=== PATIENT | male | born 1945 | race Caucasian/White ===

== ENCOUNTER 2016-11-11 15:43 | Emergency (ER) | payer OTHER ==
[~2016-11-11] VITALS: Ht 182.9 cm; Wt 70.5 kg
[~2016-11-11 15:43] MED LIST: CITA10TA4 PO; CLON1 PO; MIRT1TAB PO
[2016-11-11 15:45] VITALS: BP 170/78; PULSE 98; RESP 22; TEMP 97.9; O2SAT 100
[2016-11-11] MEDS ORDERED: CITA20TA4 PO (15:48)
[2016-11-11] MEDS ORDERED: BUSP15TA PO (15:48)
[2016-11-11] MEDS ORDERED: CLON0.5T PO ×2 (15:48→17:17)
[2016-11-11] MEDS ORDERED: MIRT30TA PO (15:48)
[2016-11-11 15:55] VITALS: BP 170/78; PULSE 98; RESP 22; TEMP 97.9; O2SAT 100
[2016-11-11] MEDS ORDERED: SODIUM CHLOR 0.9% 1000 ML INJ 1,000 ML IV ONE (16:00)
[2016-11-11] MEDS ORDERED: LORazepam 2 MG/ML VIAL IV PUSH ONE (16:00)
[2016-11-11 16:15] LABS: AUTOMATED NEUTROPHIL # 4.3 TH/MM3 (1.8-7.7); BASOPHIL # 0.1 TH/MM3 (0-0.2); BASOPHIL % 1.4 % (0.0-2.0); EOSINOPHIL % 0.3 % (0.0-4.0); HEMATOCRIT 40.4 % (39.0-51.0); LYMPH % 16.5 % (9.0-44.0); LYMPHOCYTE # 0.9 TH/MM3 (1.0-4.8); MEAN CELL VOLUME 89.6 FL (80.0-100.0); MEAN CORPUSCULAR HEMOGLOBIN 31.1 PG (27.0-34.0); MEAN CORPUSCULAR HGB CONC 34.7 % (32.0-36.0); MONO % 5.8 % (0.0-8.0); PLATELET COUNT 196 TH/MM3 (150-450); RED BLOOD COUNT 4.51 MIL/MM3 (4.50-5.90); RED CELL DISTRIBUTION WIDTH 11.7 % (11.6-17.2); WHITE BLOOD COUNT 5.6 TH/MM3 (4.0-11.0)
[2016-11-11 16:20] LABS: HEMO FLAGS DIFF FINAL
[2016-11-11 16:22] LABS: CHLORIDE 103 MEQ/L (98-107); POTASSIUM 3.5 MEQ/L (3.5-5.1); SODIUM (NA) 138 MEQ/L (136-145)
[2016-11-11 16:26] LABS: ANION GAP 12 MEQ/L (5-15); BICARBONATE 23.1 MEQ/L (21.0-32.0); BLOOD UREA NITROGEN 7 MG/DL (7-18); MAGNESIUM 1.8 MG/DL (1.5-2.5)
[2016-11-11 16:29] LABS: ALT (GPT) 19 U/L (12-78); AST (GOT) 12 U/L (15-37); GLOMERULAR FILTRATION RATE 107 ML/MIN (>89)
[2016-11-11 16:31] LABS: TOTAL BILIRUBIN ADULT 0.5 MG/DL (0.2-1.0)
[2016-11-11 16:32] LABS: ALKALINE PHOSPHATASE 80 U/L (45-117)
--- NOTE | 2016-11-11 17:22 | PD ---
HPI Chief Complaint: Anxiety Time Seen by Provider: 15:50 Travel History International Travel<30 days: No Contact w/Intl Traveler<30days: No Traveled to known affect area: No History of Present Illness HPI This 71-year-old male says he is feeling tremulous. He's been having some nausea and anxiety. He has a history of anxiety and is on multiple medications. He has been on Klonopin until 2 days ago. He ran out of his medication and has not had any since. He stopped drinking about 5 months ago. He is not having any chest pain. PFSH Past Medical History Arthritis: Yes Anxiety: Yes Depression: Yes Cancer: No Cardiovascular Problems: No Chemotherapy: No Cerebrovascular Accident: No Diminished Hearing: No Endocrine: No Genitourinary: No Immune Disorder: No Musculoskeletal: Yes Neurologic: No Psychiatric: Yes (Panic attacks ) Reproductive: No Respiratory: No Immunizations Current: Yes (SHINGLES VACCINE 2014) Migraines: No Radiation Therapy: No Seizures: No Tetanus Vaccination: < 5 Years Influenza Vaccination: Yes Past Surgical History Abdominal Surgery: Yes (Hernia X's 3) Appendectomy: Yes Cardiac Surgery: No Ear Surgery: No Endocrine Surgery: No Eye Surgery: Yes (Cataract extraction) Genitourinary Surgery: No Gynecologic Surgery: No Oral Surgery: No Thoracic Surgery: No Other Surgery: Yes (Appendectomy 1980, Herni Repair 1981, Herni Repair 1983, Herni Repair 1990) Social History Alcohol Use: Yes (States sober 5 months) Tobacco Use: No Substance Use: No Allergies-Medications (Allergen,Severity, Reaction): Coded Allergies: No Known Allergies (Unverified , 11/11/16) Reported Meds & Prescriptions Reported Meds & Active Scripts Active Reported Buspirone (Buspirone HCl) 15 Mg Tab 15 Mg PO BID Citalopram (Citalopram Hydrobromide) 20 Mg Tab 20 Mg PO DAILY Mirtazapine 30 Mg Tab 30 Mg PO HS Clonazepam 0.5 Mg Tab 0.5 Mg PO BID PRN Review of Systems General / Constitutional: No: Fever, Chills Eyes: No: Diploplia HENT: Positive: Lightheadedness, No: Headaches Cardiovascular: Positive: Palpitations, No: Chest Pain or Discomfort Gastrointestinal: Positive: Nausea, No: Vomiting Genitourinary: No: Urgency, Frequency Musculoskeletal: Positive: Myalgias Skin: No Rash Neurologic: Positive: Weakness Physical Exam Narrative GENERAL: Thin male. He is somewhat tremulous SKIN: Focused skin assessment warm/dry. HEAD: Atraumatic. Normocephalic. EYES: Pupils equal and round. No scleral icterus. No injection or drainage. ENT: No nasal bleeding or discharge. Mucous membranes pink and moist. NECK: Trachea midline. No JVD. CARDIOVASCULAR: Regular rate and rhythm. No murmur appreciated. RESPIRATORY: No accessory muscle use. Clear to auscultation. Breath sounds equal bilaterally. GASTROINTESTINAL: Abdomen soft, non-tender, nondistended. Hepatic and splenic margins not palpable. MUSCULOSKELETAL: No obvious deformities. No clubbing. No cyanosis. No edema. NEUROLOGICAL: Awake and alert. No obvious cranial nerve deficits. Motor grossly within normal limits. Normal speech. PSYCHIATRIC: Appropriate mood and affect; insight and judgment normal. Data Data Last Documented VS Vital Signs Date Time Temp Pulse Resp B/P Pulse Ox O2 Delivery O2 Flow Rate FiO2 11/11/16 15:55 97.9 98 22 170/78 100 Room Air Orders Electrocardiogram (11/11/16 15:56) Complete Blood Count With Diff (11/11/16 15:56) Comprehensive Metabolic Panel (11/11/16 15:56) Magnesium (Mg) (11/11/16 15:56) Thyroid Stimulating Hormone (11/11/16 15:56) Sodium Chlor 0.9% 1000 Ml Inj (Ns 1000 M (11/11/16 16:00) Lorazepam Inj (Ativan Inj) (11/11/16 16:00) Labs Laboratory Tests Test 11/11/16 16:05 White Blood Count 5.6 TH/MM3 Red Blood Count 4.51 MIL/MM3 Hemoglobin 14.0 GM/DL Hematocrit 40.4 % Mean Corpuscular Volume 89.6 FL Mean Corpuscular Hemoglobin 31.1 PG Mean Corpuscular Hemoglobin 34.7 % Concent Red Cell Distribution Width 11.7 % Platelet Count 196 TH/MM3 Mean Platelet Volume 7.5 FL Neutrophils (%) (Auto) 76.0 % Lymphocytes (%) (Auto) 16.5 % Monocytes (%) (Auto) 5.8 % Eosinophils (%) (Auto) 0.3 % Basophils (%) (Auto) 1.4 % Neutrophils # (Auto) 4.3 TH/MM3 Lymphocytes # (Auto) 0.9 TH/MM3 Monocytes # (Auto) 0.3 TH/MM3 Eosinophils # (Auto) 0.0 TH/MM3 Basophils # (Auto) 0.1 TH/MM3 CBC Comment DIFF FINAL Differential Comment Sodium Level 138 MEQ/L Potassium Level 3.5 MEQ/L Chloride Level 103 MEQ/L Carbon Dioxide Level 23.1 MEQ/L Anion Gap 12 MEQ/L Blood Urea Nitrogen 7 MG/DL Creatinine 0.73 MG/DL Estimat Glomerular Filtration 107 ML/MIN Rate Random Glucose 103 MG/DL Calcium Level 8.5 MG/DL Magnesium Level 1.8 MG/DL Total Bilirubin 0.5 MG/DL Aspartate Amino Transf 12 U/L (AST/SGOT) Alanine Aminotransferase 19 U/L (ALT/SGPT) Alkaline Phosphatase 80 U/L Total Protein 6.8 GM/DL Albumin 3.7 GM/DL Thyroid Stimulating Hormone 2.020 uIU/ML 3rd Gen [facility] Medical Decision Making Medical Screen Exam Complete: Yes Emergency Medical Condition: Yes Medical Record Reviewed: Yes Differential Diagnosis Differential includes anxiety, adverse medication reaction, benzodiazepine withdrawal Narrative Course I think a lot of his symptoms are secondary to withdrawal from Klonopin. I will prescribe Klonopin to use for the next 2 weeks; follow-up with his own medical doctor Diagnosis Primary Impression: Benzodiazepine withdrawal Qualified Code: F13.230 - Benzodiazepine withdrawal, uncomplicated Scripts Clonazepam 0.5 Mg Tab0.5 Mg PO BID PRN (ANXIETY) #60 TAB Ref 0 Prov:Stu Vazquez MD 11/11/16 Disposition: DISCHARGE HOME Condition: Stable Stu Vazquez MD Nov 11, 2016 17:22
[2016-11-11 17:25] VITALS: BP 111/63; PULSE 78; RESP 16; O2SAT 100
[2016-11-11 17:32] LABS: BLOOD, URINE NEG (NEG); GLUCOSE,URINE NEG (NEG); KETONE, URINE NEG (NEG); NITRITE,URINE NEG (NEG)
[2016-11-11 17:35] LABS: URINE COLOR STRAW (YELLW/STRAW)
[2016-11-11 17:36] LABS: COMMENT (UR) CULT NOT INDICATED; CULTURE IF INDICATED CULT NOT INDICATED; SQUAMOUS EPITHELIAL CELL URINE 0-5 /hpf (0-5)
--- NOTE | 2016-11-12 11:48 | EKG ---
Date Performed: 11/11/2016 Time Performed: 16:15:14 PTAGE: 71 years EKG: Sinus rhythm BORDERLINE LEFT AXIS DEVIATION Since previous tracing, no significant change noted BORDERLINE ECG PREVIOUS TRACING : 04/25/2016 10.34 DOCTOR: Mark Conner Interpretating Date/Time 11/12/2016 11:45:30
== END 2016-11-11 17:55 | disposition home or self-care (01) ==
LOC: PHED 15:43
DX: F13.230 Sedative, hypnotic or anxiolytic dependence with withdrawal, uncomplicated (principal); R25.1 Tremor, unspecified; F41.9 Anxiety disorder, unspecified; R11.0 Nausea; R94.31 Abnormal electrocardiogram [ECG] [EKG]; Z87.39 Personal history of other diseases of the musculoskeletal system and connective tissue; Z86.59 Personal history of other mental and behavioral disorders
CPT/HCPCS: 80053; 81001; 83735; 84443; 85025; 93005; 96374; 99284; J2060; J7030

== ENCOUNTER 2016-12-03 13:59 | Inpatient (IN) | payer OTHER ==
[~2016-12-03] VITALS: Ht 182.9 cm; Wt 69.7 kg
[~2016-12-03 13:59] MED LIST changes: +BUSP15TA PO; -CITA10TA4 PO; +CITA20TA4 PO; +CLON0.5T PO; -CLON1 PO; -MIRT1TAB PO; +MIRT30TA PO
[2016-12-03 15:05] VITALS: BP 130/69; PULSE 72; RESP 18; TEMP 96.4; O2SAT 98
[2016-12-03 16:05] LABS: AUTOMATED NEUTROPHIL # 5.7 TH/MM3 (1.8-7.7); BASOPHIL % 0.6 % (0.0-2.0); EOSINOPHIL # 0.1 TH/MM3 (0-0.4); EOSINOPHIL % 0.9 % (0.0-4.0); HEMATOCRIT 40.5 % (39.0-51.0); HEMO FLAGS DIFF FINAL; LYMPH % 15.9 % (9.0-44.0); LYMPHOCYTE # 1.2 TH/MM3 (1.0-4.8); MEAN CELL VOLUME 89.9 FL (80.0-100.0); MEAN CORPUSCULAR HEMOGLOBIN 32.1 PG (27.0-34.0); MEAN CORPUSCULAR HGB CONC 35.7 % (32.0-36.0); MONO % 6.9 % (0.0-8.0); NEUT % 75.7 % (16.0-70.0); PLATELET COUNT 190 TH/MM3 (150-450); RED CELL DISTRIBUTION WIDTH 12.7 % (11.6-17.2); WHITE BLOOD COUNT 7.5 TH/MM3 (4.0-11.0)
[2016-12-03 16:12] LABS: AMPHETAMINE, URINE NEG (NEG); BARBITURATES, URINE NEG (NEG); COCAINE, URINE NEG (NEG)
[2016-12-03 16:22] LABS: ANION GAP 6 MEQ/L (5-15); AST (GOT) 17 U/L (15-37); BICARBONATE 29.2 MEQ/L (21.0-32.0); BLOOD UREA NITROGEN 9 MG/DL (7-18); CHLORIDE 99 MEQ/L (98-107); GLOMERULAR FILTRATION RATE 112 ML/MIN (>89); POTASSIUM 3.6 MEQ/L (3.5-5.1); SODIUM (NA) 134 MEQ/L (136-145)
[2016-12-03 16:26] LABS: ALKALINE PHOSPHATASE 85 U/L (45-117); ALT (GPT) 18 U/L (12-78); TOTAL BILIRUBIN ADULT 0.6 MG/DL (0.2-1.0)
--- NOTE | 2016-12-03 16:33 | PD ---
HPI Chief Complaint: Suicide Ideation/Attempt Time Seen by Provider: 16:30 Travel History International Travel<30 days: No Contact w/Intl Traveler<30days: No Traveled to known affect area: No History of Present Illness HPI 71-year-old male that presents to the ED for evaluation of Ortega act. Patient was Ortega acted by police after apparently he made suicidal statements via phone to a friend. Friend contacted the police. Patient states that he bowels with depression and anxiety for some time. Per patient last Monday he is Klonopin was chained to clonazepam and ever since he's been having more symptoms. Per patient he doesn't have any actual plan but he does feel like he does not want to live like this anymore. He denies any substance abuse. No drugs. No allergies to medication. Denies any homicidal ideation. Patient was brought here under a Ortega act. He denies any medical issues today. PFSH Past Medical History Arthritis: Yes Anxiety: Yes Depression: Yes Cancer: No Cardiovascular Problems: No Chemotherapy: No Cerebrovascular Accident: No Diminished Hearing: No Endocrine: No Gastrointestinal Disorders: No Genitourinary: No Headaches: No Immune Disorder: No Implanted Vascular Access Dvce: No Musculoskeletal: Yes Neurologic: No Psychiatric: Yes (Panic attacks ) Reproductive: No Respiratory: No Immunizations Current: Yes (SHINGLES VACCINE 2014) Migraines: No Radiation Therapy: No Seizures: No Past Surgical History Abdominal Surgery: Yes (Hernia X's 3) Appendectomy: Yes Cardiac Surgery: No Ear Surgery: No Endocrine Surgery: No Eye Surgery: Yes (Cataract extraction) Genitourinary Surgery: No Gynecologic Surgery: No Neurologic Surgery: No Oral Surgery: No Thoracic Surgery: No Other Surgery: Yes (Appendectomy 1980, Herni Repair 1981, Herni Repair 1983, Herni Repair 1990) Social History Alcohol Use: Yes (States sober 5 months) Tobacco Use: No Substance Use: No Allergies-Medications (Allergen,Severity, Reaction): Coded Allergies: No Known Allergies (Unverified , 11/11/16) Reported Meds & Prescriptions Reported Meds & Active Scripts Active Clonazepam 0.5 Mg Tab 0.5 Mg PO BID PRN Reported Buspirone (Buspirone HCl) 15 Mg Tab 15 Mg PO BID Citalopram (Citalopram Hydrobromide) 20 Mg Tab 20 Mg PO DAILY Mirtazapine 30 Mg Tab 30 Mg PO HS Review of Systems Except as stated in HPI: all other systems reviewed are Neg Physical Exam Narrative GENERAL: SKIN: Warm and dry. HEAD: Atraumatic. Normocephalic. EYES: Pupils equal and round. No scleral icterus. No injection or drainage. ENT: No nasal bleeding or discharge. Mucous membranes pink and moist. Tongue is midline. No uvula deviation. NECK: Trachea midline. No JVD. CARDIOVASCULAR: Regular rate and rhythm. RESPIRATORY: No accessory muscle use. Clear to auscultation. Breath sounds equal bilaterally. GASTROINTESTINAL: Abdomen soft, non-tender, nondistended. Hepatic and splenic margins not palpable. MUSCULOSKELETAL: Extremities without clubbing, cyanosis, or edema. No obvious deformities. Full range of motion of the upper and lower extremities bilaterally. 2+ pulses bilaterally. NEUROLOGICAL: Awake and alert. No obvious cranial nerve deficits. Motor grossly within normal limits. Five out of 5 muscle strength in the arms and legs. Normal speech. PSYCHIATRIC: Depressed mood and affect; insight and judgment normal. Data Data Last Documented VS Vital Signs Date Time Temp Pulse Resp B/P Pulse Ox O2 Delivery O2 Flow Rate FiO2 12/03/16 15:05 96.4 72 18 130/69 98 Room Air Orders Complete Blood Count With Diff (12/03/16 15:07) Comprehensive Metabolic Panel (12/03/16 15:07) Psych Screen (12/03/16 15:07) Drug Screen, Random Urine (12/03/16 15:07) Alcohol (Ethanol) (12/03/16 15:07) Salicylates (Aspirin) (12/03/16 15:07) Labs Laboratory Tests Test 12/03/16 15:36 White Blood Count 7.5 TH/MM3 Red Blood Count 4.50 MIL/MM3 Hemoglobin 14.4 GM/DL Hematocrit 40.5 % Mean Corpuscular Volume 89.9 FL Mean Corpuscular Hemoglobin 32.1 PG Mean Corpuscular Hemoglobin 35.7 % Concent Red Cell Distribution Width 12.7 % Platelet Count 190 TH/MM3 Mean Platelet Volume 7.9 FL Neutrophils (%) (Auto) 75.7 % Lymphocytes (%) (Auto) 15.9 % Monocytes (%) (Auto) 6.9 % Eosinophils (%) (Auto) 0.9 % Basophils (%) (Auto) 0.6 % Neutrophils # (Auto) 5.7 TH/MM3 Lymphocytes # (Auto) 1.2 TH/MM3 Monocytes # (Auto) 0.5 TH/MM3 Eosinophils # (Auto) 0.1 TH/MM3 Basophils # (Auto) 0.0 TH/MM3 CBC Comment DIFF FINAL Differential Comment Sodium Level 134 MEQ/L Potassium Level 3.6 MEQ/L Chloride Level 99 MEQ/L Carbon Dioxide Level 29.2 MEQ/L Anion Gap 6 MEQ/L Blood Urea Nitrogen 9 MG/DL Creatinine 0.70 MG/DL Estimat Glomerular Filtration 112 ML/MIN Rate Random Glucose 87 MG/DL Calcium Level 9.3 MG/DL Total Bilirubin 0.6 MG/DL Aspartate Amino Transf 17 U/L (AST/SGOT) Alanine Aminotransferase 18 U/L (ALT/SGPT) Alkaline Phosphatase 85 U/L Total Protein 7.1 GM/DL Albumin 3.9 GM/DL Salicylates Level LESS THAN 1.7 MG/DL Urine Opiates Screen NEG Urine Barbiturates Screen NEG Urine Amphetamines Screen NEG Urine Benzodiazepines Screen NEG Urine Cocaine Screen NEG Urine Cannabinoids Screen NEG Ethyl Alcohol Level LESS THAN 3 MG/DL MDM Medical Decision Making Medical Screen Exam Complete: Yes Emergency Medical Condition: Yes Medical Record Reviewed: Yes Interpretation(s) CBC & BMP Diagram 12/03/16 15:36 LFTS WNL Tox negative Differential Diagnosis Depression versus suicidal ideation versus anxiety versus adjustment disorder versus mood disorder versus bipolar disorder versus schizophrenia versus paranoid disorder versus psychosis versus substance abuse versus alcohol abuse versus alcohol induced psychosis versus homicidality addition versus cutting versus personality disorder Narrative Course 71-year-old male that presents to the ED for evaluation of psych. Patient was properly examined and was found to have signs and symptoms consistent with appears to be psychiatric illness. No sign of acute medical distress. Labs were done. Patient was medically cleared. Okay to be seen by psych. Mental health screening was discussed with the patient. Diagnosis Primary Impression: Depression Qualified Code: F33.1 - Moderate episode of recurrent major depressive disorder Jose Thayer Dec 03, 2016 16:33
[2016-12-03 17:00] VITALS: BP 123/74; PULSE 87; RESP 16; TEMP 98.7; O2SAT 98
[2016-12-03] MEDS ORDERED: REME15TA PO (17:20)
[2016-12-03] MEDS ORDERED: LORA-392 PO (17:20)
--- NOTE | 2016-12-03 17:35 | HHI.HP ---
Provisional Diagnosis Admission Date 12/03/2016 [place] I. 1. Major depressive disorder, recurrent, moderate 2. Mixed anxiety disorder 3. Alcohol dependence, in early remission 4. Rule out benzodiazepine abuse [place] II. Deferred [place] V. GAF is 35 Certification of Person's Competence To Provide Express and Informed Consent I have personally examined Christopher Newsome , a person being served at [facility] on, Dec 03, 2016 17:35. Express and informed consent means consent voluntarily given in writing, by a competent person, after sufficient explanation and disclosure of the subject matter involved to enable the person to make a knowing and willful decision without any element of force, fraud, deceit, duress, or other form of constraint or coercion. This person is 18 years of age or older, is not now known to be incompetent to consent to treatment with a guardian advocate, and does not have a health care surrogate or proxy currently making medical treatment decisions. I have found this person to be one of the following: [] Competent to provide express and informed consent, as defined above, for voluntary admission to this facility and is competent to provide express and informed consent for treatment. He/she has the consistent capacity to make well reasoned, willful, and knowing decisions concerning his or her medical or mental health treatment. The person fully and consistently understands the purpose of the admission for examination/placement and is fully capable of personally exercising all rights assured [place] [] Incompetent to provide express and informed consent to voluntary admission, and this is incompetent to provide express and informed consent to treatment. The person must be transferred to involuntary status and a petition for a guardian advocate filed with the Circuit Court. [] Refusing to provide express and informed consent to voluntary admission but is competent to provide express and informed consent for treatment. The person must be discharged or transferred to involuntary status. Form shall be completed within 24 hours of a person's arrival at the receiving facility and filed in the clinical record of each person: 1. Admitted on a voluntary basis 2. Permitted to provide express and informed consent to his/her own treatment 3. Allowed to transfer from involuntary to voluntary status 4. Prior to permitting a person to consent to his or her own treatment after having been previously found incompetent to consent to treatment. History of Present Illness Capacity: Has Capacity HPI Mr. Newsome is a 71-year-old male with a reported history of depression and anxiety as well as a history of alcohol use issues reportedly in remission who presents on a Ortega act alleging that he sent text messages to a friend saying that he wanted to . Reviewing the electronic medical record, I note that the patient has a history of previous ED visits for substance use issues, and I myself saw the patient in consultation in August 2015. Patient seen and examined. Chart reviewed. Case discussed with nursing staff. On my examination today, the patient presents as quite anxious. He says that he has been feeling increasingly depressed and anxious over the last several weeks in connection with some somatic symptoms. He says that he has had trouble swallowing, he has been tremulous and constipated. He is feeling hopeless about his situation. Sleep is poor. He says "I'm scared I'm losing it." He endorses suicidal ideation but no plan. He says "I don't want to be like this." Denies any current or previous hypomanic or manic symptoms. Denies audiovisual hallucinations and I can elicit no delusional beliefs. The remainder of the psychiatric ROS is negative. Past psychiatric history: Patient reports a history of depression and anxiety. He follows at [facility] and his provider there reportedly recently changed his Klonopin to Ativan, which he admits he has been overusing somewhat on account of his anxiety, and also recently tapered his Remeron from 30-15 mg. He is also on a stable dose of Celexa. He denies a history of psychiatric admissions but says that he was detoxified from alcohol at [facility] 5 months ago and has been sober since then. He denies any history of suicide attempts. Family history: Patient denies any family history of mental illness, substance use disorder or suicide. Chemical dependency history: The patient endorses a history of alcohol and benzo dependence but says that he has been sober from alcohol since he left [facility] 5 months ago. He maintains that his benzodiazepine use has been as prescribed except for the last several days when he has been feeling acutely more anxious and he has over used them somewhat. Social history: The patient reports that he lives with a roommate. He is . He has 2 children and a grandchild. He has a bachelor's degree. He is a retired actor and former real estate photographer. He served in the [employer] in the [employer] for 8 years. He denies any legal history. Denies any access to guns or firearms. He is a [employer]. Review of Systems Except as stated in HPI: all other systems reviewed are Neg Past Psych History Psychological trauma history No reported trauma history to me Violence risk - others (6 mos) Lower imminent risk. No homicidal ideation. Violence risk - self (6 mos) Concern for elevated risk. Suicidal ideation. Feels like he is losing control of his body. Substance Abuse History Drugs/Alcohol past 12 months See above Past Family Social History Coded Allergies: No Known Allergies (Unverified , 11/11/16) Past Medical History See electronic medical record Reported Medications Lorazepam (Ativan)0.5 Mg Tab0.5 Mg PO BID Ref 0 12/03/16 Mirtazapine (Remeron)15 Mg Tab15 Mg PO HS #30 TAB Ref 0 12/03/16 Discontinued Reported Medications Buspirone 15 Mg Tab15 Mg PO BID Ref 0 11/11/16 Citalopram 20 Mg Tab20 Mg PO DAILY #30 TAB Ref 0 11/11/16 Mirtazapine 30 Mg Tab30 Mg PO HS #30 TAB Ref 0 11/11/16 Discontinued Scripts Clonazepam 0.5 Mg Tab0.5 Mg PO BID PRN (ANXIETY) #60 TAB Ref 0 Prov:Stu Vazquez MD 11/11/16 Family History See above Social History See above Patient's Strengths (min. 2) In a monitored setting. Verbally fluent. Physical Exam Physical examination completed by ED provider. On my examination today, the patient appears to be in mild to moderate distress secondary chiefly to anxiety. He does have a resting tremor with some cogwheeling, left greater than right. No stigmata of GABAergic withdrawal. No other motor abnormalities appreciated. Laboratories and vital signs reviewed: Vital Signs Vital Signs Date Time Temp Pulse Resp B/P Pulse Ox O2 Delivery O2 Flow Rate FiO2 12/03/16 17:00 98.7 87 16 123/74 98 Room Air Lab Results Laboratory Tests Test 12/03/16 15:36 White Blood Count 7.5 TH/MM3 Red Blood Count 4.50 MIL/MM3 Hemoglobin 14.4 GM/DL Hematocrit 40.5 % Mean Corpuscular Volume 89.9 FL Mean Corpuscular Hemoglobin 32.1 PG Mean Corpuscular Hemoglobin 35.7 % Concent Red Cell Distribution Width 12.7 % Platelet Count 190 TH/MM3 Mean Platelet Volume 7.9 FL Neutrophils (%) (Auto) 75.7 % Lymphocytes (%) (Auto) 15.9 % Monocytes (%) (Auto) 6.9 % Eosinophils (%) (Auto) 0.9 % Basophils (%) (Auto) 0.6 % Neutrophils # (Auto) 5.7 TH/MM3 Lymphocytes # (Auto) 1.2 TH/MM3 Monocytes # (Auto) 0.5 TH/MM3 Eosinophils # (Auto) 0.1 TH/MM3 Basophils # (Auto) 0.0 TH/MM3 CBC Comment DIFF FINAL Differential Comment Sodium Level 134 MEQ/L Potassium Level 3.6 MEQ/L Chloride Level 99 MEQ/L Carbon Dioxide Level 29.2 MEQ/L Anion Gap 6 MEQ/L Blood Urea Nitrogen 9 MG/DL Creatinine 0.70 MG/DL Estimat Glomerular Filtration 112 ML/MIN Rate Random Glucose 87 MG/DL Calcium Level 9.3 MG/DL Total Bilirubin 0.6 MG/DL Aspartate Amino Transf 17 U/L (AST/SGOT) Alanine Aminotransferase 18 U/L (ALT/SGPT) Alkaline Phosphatase 85 U/L Total Protein 7.1 GM/DL Albumin 3.9 GM/DL Salicylates Level LESS THAN 1.7 MG/DL Urine Opiates Screen NEG Urine Barbiturates Screen NEG Urine Amphetamines Screen NEG Urine Benzodiazepines Screen NEG Urine Cocaine Screen NEG Urine Cannabinoids Screen NEG Ethyl Alcohol Level LESS THAN 3 MG/DL Mental Status Examination Patient is in hospital gown. He is fairly well groomed. He is awake and alert and oriented 3. No evidence of delirium. Motor exam as above. Speech is somewhat tremulous but otherwise within normal limits. Language and fund of knowledge seem average. Focus and concentration somewhat scattered. Memory grossly intact on clinical exam. Mood depressed and anxious and affect restricted and consistent with stated mood. Thought process linear. No loosening of associations. No evident delusional material. Denies audiovisual hallucinations. Endorses suicidal ideation with no specific plan or intent. No reported urge to hurt himself on the inpatient psychiatric unit. No homicidal ideation. Insight and judgment are fair. Assessment & Plan Problem List: (1) Major depressive disorder, recurrent, moderate ICD Code: F33.1 (2) Other mixed anxiety disorders ICD Code: F41.3 (3) Alcohol dependence ICD Code: F10.20 Assessment & Plan This is a 71-year-old male with psychiatric history as detailed above who presents under a Ortega act. On my evaluation today, the patient reports several weeks of worsening mood in the setting of psychotropic medication adjustments. 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 Patient is experiencing suicidal ideation in response to his dysphoria. Patient requires psychiatric hospitalization at this time for safety , observation and stabilization. Admit inpatient. Voluntary status. Consultation neurology to evaluate patient' s somatic symptoms as I am concerned that patient may be experiencing, e.g. onset of PD. Swallow eval. Nothing by mouth pending swallow eval. Titrate Celexa to 30 mg daily for mood. Remeron at bedtime. I will place the patient on a CIWA scale with Ativan for the management of withdrawal. Seizure and fall precautions. Atarax as needed for anxiety, Cogentin as needed for EPS, Benadryl as needed for sleep. PT eval. Vitals every shift. Counselor to see. Disposition planning. Estimated length of stay: 5-7 days. Request HC Surrog/Guard Advoc?: No Problem Qualifiers (1) Alcohol dependence: Qualified Code: F10.21 - Alcohol dependence in remission Mark Melo MD Dec 03, 2016 17:35
[2016-12-03] MEDS ORDERED: FLUMAZENIL 0.5 MG/5 ML VIAL IV PUSH PRN (17:45)
[2016-12-03] MEDS ORDERED: MAGNESIUM HYDROXIDE SUSP 30 ML CUP PO PRN (17:45)
[2016-12-03] MEDS ORDERED: LORazepam 2 MG TAB PO PRN (17:45)
[2016-12-03] MEDS ORDERED: LORazepam 2 MG/ML VIAL IM PRN ×4 (17:45)
[2016-12-03] MEDS ORDERED: BENZTROPINE MESYLATE 2 MG/2 ML VIAL IM PRN (17:45)
[2016-12-03] MEDS ORDERED: ACETAMINOPHEN 325 MG TAB PO PRN (17:45)
[2016-12-03] MEDS ORDERED: BENZTROPINE MESYLATE 1 MG TAB PO PRN (17:45)
[2016-12-03] MEDS ORDERED: ALUMINUM/MAGNESIUM/SIMETH 30 ML CUP PO PRN (17:45)
[2016-12-03] MEDS ORDERED: PILL SPLITTER OTHER PRN (18:00)
[2016-12-03] MEDS ORDERED: BISACODYL EC 5 MG TABEC PO PRN (18:15)
[2016-12-03 20:10] VITALS: BP 129/69; PULSE 78; RESP 16; TEMP 97.7; O2SAT 98
[2016-12-03] MEDS ORDERED: MIRTAZAPINE 15 MG TAB PO SCH (21:00)
[2016-12-03] MEDS: DOCUSATE SODIUM 100 MG CAP PO SCH (21:09)
[2016-12-03] MEDS: LORazepam 1 MG TAB PO PRN (21:09)
[2016-12-03] MEDS: diphenhydrAMINE HCL 50 MG CAP PO PRN (21:09)
[2016-12-04 06:19] VITALS: BP 99/58; PULSE 61; RESP 16; TEMP 97; O2SAT 97
[2016-12-04] MEDS: REMOVE OLD PATCH T-DERMAL SCH (09:00)
[2016-12-04] MEDS: DOCUSATE SODIUM 100 MG CAP PO SCH ×2 (09:00→21:00)
[2016-12-04] MEDS: NICOTINE 21 MG/24 HR PATCH T-DERMAL SCH (09:00)
[2016-12-04] MEDS: CITALOPRAM HYDROBROMIDE 20 MG TAB PO SCH (09:05)
[2016-12-04 10:15] LABS: ANION GAP 6 MEQ/L (5-15); BICARBONATE 29.8 MEQ/L (21.0-32.0); BLOOD UREA NITROGEN 8 MG/DL (7-18); CHLORIDE 100 MEQ/L (98-107); GLOMERULAR FILTRATION RATE 105 ML/MIN (>89); POTASSIUM 4.1 MEQ/L (3.5-5.1); SODIUM (NA) 136 MEQ/L (136-145)
[2016-12-04 10:42] LABS: HDL CHOLESTEROL 59.4 MG/DL (40.0-60.0); LDL CHOLESTEROL 90 MG/DL (0-99)
[2016-12-04] MEDS: LORazepam 1 MG TAB PO PRN (12:00)
--- NOTE | 2016-12-04 12:25 | MB ---
cc: JERI FOSTER M.D. DATE OF CONSULTATION: 12/04/2016. HISTORY OF PRESENT ILLNESS: A 71-year-old right-handed man with a history of seizure six years ago with hyponatremia, otherwise he has been very healthy. For the last several years he has had intermittent tremors with intention left greater than right, which has seemed to be worse the last several days. There is no family history for tremors. He has not noticed it in his feet or head. REVIEW OF SYSTEMS: He denies any history of hypertension, diabetes, hypercholesterolemia, myocardial infarction, CABG, stents, angioplasty, atrial fibrillation, coumadin, renal, hepatic, or pulmonary disease, thyroid disease, lupus, ulcer, cancer or stroke. SOCIAL HISTORY Not a smoker. Quit drinking about five months ago. Lives with a roommate. FAMILY HISTORY: Negative for cancer, seizure or stroke. PAST MEDICAL HISTORY: 1. Anxiety. 2. History of depression. He made suicidal statements on the phone. MEDICATIONS: 1. BuSpar. 2. Citalopram. 3. Mirtazapine. 4. Klonopin. ALLERGIES: NO KNOWN DRUG ALLERGIES. PHYSICAL EXAMINATION: VITAL SIGNS: Afebrile, 61, 16, 99/58 to 130/69. He says he is lightheaded at times standing. NECK: There are no carotid bruits. HEART: Regular rhythm. I do not detect a murmur. NEUROLOGICAL EXAMINATION: Pupils are equal. Visual munoz are full. Extraocular movements intact without nystagmus. Face is symmetric with normal sensation. Tongue was midline. No drift. Normal strength in upper and lower extremities bilaterally. DTRs are 2+ symmetric throughout. Toes are downgoing bilaterally. Pin prick and vibratory sense are intact throughout. He is not ataxic on [id number]. Speech is fluent. He is not aphasic. There is a minimal tremor of his head and chin and he has a mild to moderate tremor intention of the left greater than right upper extremity with finger pointing mildly coarse. LABORATORY DATA: CBC was normal. Urine drug screen negative. Basic metabolic profile normal. Cholesterol normal. B12 and thyroid normal. IMPRESSION: Intention tremor. A mild essential tremor. He says he would like to try some medicine for it. The best medicine would be Inderal. He could be started on Inderal LA 16 mg a day if his standing blood pressures are not too low and if psychiatry feels it would be okay and not exacerbate his depression. It could help with his anxiety. So I will defer to psychiatry if they think he should be started on that medication. Otherwise, I think he looks well neurologically. Considering his history of seizure and the tremor, will check an MRI of his brain, and if that is okay, then he could be discharged neurologically. I would just ask the psychiatry team to follow up on his MRI result and his standing blood pressure and consider starting him on the Inderal for the tremor as noted above. If there are any problems, please feel free to call me. MD OREN Georges/TAMMY /11:59 AM /12:19 PM
[2016-12-04 12:49] LABS: HEMOGLOBIN A1b 0.8 %; HEMOGLOBIN Ao 86.4 %; HEMOGLOBIN F 0.7 %; HEMOGLOBIN LA1C 1.9 %; HEMOGLOBIN P3 3.4 %
[2016-12-04 15:27] VITALS: BP 120/62; PULSE 81; RESP 18; TEMP 97.8; O2SAT 99
[2016-12-04 15:30] VITALS: BP 124/60; PULSE 74; RESP 18; TEMP 97.8; O2SAT 100
[2016-12-04 15:31] VITALS: BP 117/59; PULSE 91; RESP 18; TEMP 97.8; O2SAT 98
--- NOTE | 2016-12-04 15:36 | HHI.PYPN ---
Subjective Remarks Patient was seen and case discussed with nursing. Patient says he really is dizzy when he stands up from a sitting position. Neurology saw him ordered an MRI and orthostatics. He remains depressed but denies suicidal ideation intent or plan. Cannot identify any recent stressors besides medication change. Complaining of poor sleep Objective Alert: Yes [place]: Person, Place, Date, Situation Mood: Anxious Affect: Restricted Memory Intact: Immediate (grossly intact) Hallucinations: Auditory (denies) Delusions: No Delusion Type: Other (denies) Suicidal: Ideation (denies) Homicidal: Ideation (denies) Insight/Judgment Poor Labs Test 12/03/16 12/04/16 15:36 09:17 White Blood Count 7.5 TH/MM3 Red Blood Count 4.50 MIL/MM3 Hemoglobin 14.4 GM/DL Hematocrit 40.5 % Mean Corpuscular Volume 89.9 FL Mean Corpuscular Hemoglobin 32.1 PG Mean Corpuscular Hemoglobin 35.7 % Concent Red Cell Distribution Width 12.7 % Platelet Count 190 TH/MM3 Mean Platelet Volume 7.9 FL Neutrophils (%) (Auto) 75.7 % Lymphocytes (%) (Auto) 15.9 % Monocytes (%) (Auto) 6.9 % Eosinophils (%) (Auto) 0.9 % Basophils (%) (Auto) 0.6 % Neutrophils # (Auto) 5.7 TH/MM3 Lymphocytes # (Auto) 1.2 TH/MM3 Monocytes # (Auto) 0.5 TH/MM3 Eosinophils # (Auto) 0.1 TH/MM3 Basophils # (Auto) 0.0 TH/MM3 CBC Comment DIFF FINAL Differential Comment Sodium Level 134 MEQ/L 136 MEQ/L Potassium Level 3.6 MEQ/L 4.1 MEQ/L Chloride Level 99 MEQ/L 100 MEQ/L Carbon Dioxide Level 29.2 MEQ/L 29.8 MEQ/L Anion Gap 6 MEQ/L 6 MEQ/L Blood Urea Nitrogen 9 MG/DL 8 MG/DL Creatinine 0.70 MG/DL 0.74 MG/DL Estimat Glomerular Filtration 112 ML/MIN 105 ML/MIN Rate Random Glucose 87 MG/DL 118 MG/DL Calcium Level 9.3 MG/DL 10.0 MG/DL Total Bilirubin 0.6 MG/DL Aspartate Amino Transf 17 U/L (AST/SGOT) Alanine Aminotransferase 18 U/L (ALT/SGPT) Alkaline Phosphatase 85 U/L Total Protein 7.1 GM/DL Albumin 3.9 GM/DL Salicylates Level LESS THAN 1.7 MG/DL Urine Opiates Screen NEG Urine Barbiturates Screen NEG Urine Amphetamines Screen NEG Urine Benzodiazepines Screen NEG Urine Cocaine Screen NEG Urine Cannabinoids Screen NEG Ethyl Alcohol Level LESS THAN 3 MG/DL Hemoglobin A1c 5.4 % Triglycerides Level 76 MG/DL Cholesterol Level 165 MG/DL LDL Cholesterol 90 MG/DL HDL Cholesterol 59.4 MG/DL Cholesterol/HDL Ratio 2.77 RATIO Vitamin B12 Level 732 PG/ML 25-Hydroxy Vitamin D Total 35.6 ng/ML Thyroid Stimulating Hormone 1.420 uIU/ML 3rd Gen Vitals/IOs Vital Signs Date Time Temp Pulse Resp B/P Pulse Ox O2 Delivery O2 Flow Rate FiO2 12/04/16 15:31 97.8 91 18 117/59 98 12/03/16 17:00 Room Air Assessment & Plan Problem List: (1) Major depressive disorder, recurrent, moderate ICD Code: F33.1 (2) Other mixed anxiety disorders ICD Code: F41.3 (3) Alcohol dependence ICD Code: F10.20 Assessment & Plan Continue medical evaluation and treatment as indicated Justification for Cont. Inpt. Patient would decompensate in a less restrictive setting Request HC Surrog/Guard Advoc?: No Problem Qualifiers (1) Alcohol dependence: Qualified Code: F10.21 - Alcohol dependence in remission Thierry Frederick DO Dec 04, 2016 15:36
[2016-12-04 19:00] VITALS: BP 127/65; PULSE 67; RESP 18; TEMP 97.1; O2SAT 99
[2016-12-04] MEDS: MIRTAZAPINE 15 MG TAB PO SCH (21:11)
[2016-12-05 06:34] VITALS: BP 117/75; PULSE 70; RESP 14; TEMP 98.1
[2016-12-05 08:18] VITALS: BP 147/91; PULSE 104; O2SAT 100
[2016-12-05] MEDS: CITALOPRAM HYDROBROMIDE 20 MG TAB PO SCH (08:24)
[2016-12-05] MEDS: DOCUSATE SODIUM 100 MG CAP PO SCH ×2 (08:24→21:00)
[2016-12-05] MEDS: REMOVE OLD PATCH T-DERMAL SCH (08:26)
[2016-12-05] MEDS: NICOTINE 21 MG/24 HR PATCH T-DERMAL SCH (08:26)
[2016-12-05] MEDS ORDERED: GADODIAMIDE PF 287 MG/ML 5 ML VIAL (for RAD MRI) IV ONE (11:55)
--- NOTE | 2016-12-05 11:59 | RADRPT ---
EXAM DATE/TIME: 12/05/2016 11:17 [facility] COMPARISON: CT BRAIN W/O CONTRAST, April 25, 2016, 11:48. INDICATIONS : Seizures. CONTRAST: 14 cc Omniscan (gadodiamide) IV MEDICAL HISTORY : None. SURGICAL HISTORY : Appendectomy. Total knee replacement, right. Hernia repair. ENCOUNTER: Initial ACUITY: 2 day PAIN SCORE: 1/10 LOCATION: Bilateral cranial TECHNIQUE: Multiplanar, multisequence MRI of the brain was performed both prior to and following the administrat ion of paramagnetic contrast. FINDINGS: CEREBRUM: The ventricles are normal for age. No evidence of midline shift, mass lesion, hemorrhage or acute in farction. No extraaxial fluid collections are seen. The pituitary gland and suprasellar cistern are normal in configuration. WHITE MATTER: No significant signal abnormalities are seen in the white matter. POSTERIOR FOSSA: The cerebellum and brainstem are intact. The 4th ventricle is midline. The cerebellopontine angle is unremarkable. The cerebellar tonsils are normal in position. DIFFUSION IMAGING: No focal areas of restricted diffusion are seen. No evidence of acute infarction. EXTRACRANIAL: The visualized portions of the orbits and paranasal sinuses are unremarkable. POST-CONTRAST: No abnormal areas of parenchymal or dural enhancement. No evidence of blood-brain barrier breakdown. CONCLUSION: Normal examination. Josh Preciado MD on December 05, 2016 at 11:57 Board Certified Radiologist. This report was verified electronically.
--- NOTE | 2016-12-05 16:54 | HHI.PYPN ---
Subjective Remarks Patient seen and examined with RN. Chart reviewed. Case d/w RN. Pt had paroxysm of anxiety this morning but otherwise no other issues. On my exam, patient reports mood is improving. He does complain of the episode of anxiety this morning, no clear trigger, resolved now. In discussing the episode with patient, he tells me that the most troubling part was the physical sensations associated with the episode, not so much the psychological component of anxiety. No SI or HI. Denies side effects from medications. No physical complaints at this time. Review of Systems Except as stated in HPI: all other systems reviewed are Neg Objective Alert: Yes [place]: Person (O x 3) Mood: Other (Presently calm) Affect: Blunted Memory Intact: Comment (Intact on clinical exam) Hallucinations: Other (No AVH) Delusions: No Delusion Type: Other (No delusions) Suicidal: Ideation (No SI) Homicidal: Ideation (No HI) Insight/Judgment Fair Remarks Hand tremor as before. No other abnormal motor movements noted. No stigmata of withdrawal. TP linear. Grooming and hygiene good. Labs Labs reviewed. Last Impressions Brain MRI 12/05/16 0000 Signed Impressions: Service Date/Time: Monday, December 05, 2016 11:17 - CONCLUSION: Normal examination. Josh Preciado MD Vitals/IOs Vital Signs Date Time Temp Pulse Resp B/P Pulse Ox O2 Delivery O2 Flow Rate FiO2 12/05/16 08:18 104 147/91 100 12/05/16 06:34 98.1 14 12/03/16 17:00 Room Air Assessment & Plan Problem List: (1) Major depressive disorder, recurrent, moderate ICD Code: F33.1 (2) Other mixed anxiety disorders ICD Code: F41.3 (3) Alcohol dependence ICD Code: F10.20 Assessment & Plan Check orthostatics. Dr. Lopez recs Inderal for tremor, and this would likely help with anxiety as well. Will plan to start Inderal in the morning if patient is not significantly orthostatic. Continue other meds and care as ordered. Justification for Cont. Inpt. Anticipate med changes. Risk for decompensation. Discharge Planning Pending stabilization. Request HC Surrog/Guard Advoc?: No Problem Qualifiers (1) Alcohol dependence: Qualified Code: F10.21 - Alcohol dependence in remission Mark Melo MD Dec 05, 2016 16:54
[2016-12-05 17:19] VITALS: BP 115/56; PULSE 80; O2SAT 100
[2016-12-05 17:20] VITALS: BP 115/58; PULSE 84; O2SAT 100
[2016-12-05 17:21] VITALS: BP 100/57; PULSE 102; O2SAT 100
[2016-12-05] MEDS: MIRTAZAPINE 15 MG TAB PO SCH (21:00)
[2016-12-06] MEDS: DOCUSATE SODIUM 100 MG CAP PO SCH ×2 (08:27→21:00)
[2016-12-06] MEDS: CITALOPRAM HYDROBROMIDE 20 MG TAB PO SCH (08:28)
--- NOTE | 2016-12-06 09:39 | HHI.PYPN ---
Subjective Remarks Patient seen and examined. Chart reviewed. Case discussed with nursing staff. Patient was orthostatic by HR. On my exam, patient complains of high anxiety this morning. He tells me he is "really scared" about leaving the hospital because he is worried that someone is out to get him. He professes that he does not know of any specific person out to get him but just feels that there is some malevolent force out there that fills him with dread. Mood remains "very down." Denies SI. Denies side effects from medications. No physical complaints not better explained by his anxiety. Review of Systems Except as stated in HPI: all other systems reviewed are Neg Objective Alert: Yes [place]: Person (once again oriented 3) Mood: Anxious, Depressed Affect: Restricted Memory Intact: Comment (Intact on clinical exam) Hallucinations: Other (No AVH) Delusions: No Delusion Type: Other (fearful as above, but I suspect this is more anxiety driven than paranoia) Suicidal: Ideation (No SI) Homicidal: Ideation (No HI) Insight/Judgment Fair Remarks No abnormal motor movements noted. Thought process linear. Grooming and hygiene fair. Labs Labs reviewed. Vitals/IOs Vital Signs Date Time Temp Pulse Resp B/P Pulse Ox O2 Delivery O2 Flow Rate FiO2 12/05/16 17:21 102 100/57 100 12/05/16 06:34 98.1 14 12/03/16 17:00 Room Air Assessment & Plan Problem List: (1) Major depressive disorder, recurrent, moderate ICD Code: F33.1 (2) Other mixed anxiety disorders ICD Code: F41.3 (3) Alcohol dependence ICD Code: F10.20 Assessment & Plan Patient orthostatic by heart rate and so I do not think that Inderal is a good idea at this point. Instead, I will add Zyprexa 5mg qHS, which is less associated with orthostasis than e.g. Seroquel. Risks and benefits discussed with the patient. Continue other medications and care as ordered. Justification for Cont. Inpt. Pending psychiatric stabilization. Discharge Planning Anticipate discharge within the next 2-3 days. Request HC Surrog/Guard Advoc?: No Problem Qualifiers (1) Alcohol dependence: Qualified Code: F10.21 - Alcohol dependence in remission Mark Melo MD Dec 06, 2016 09:39
[2016-12-06] MEDS: hydrOXYzine HCL 50 MG TAB PO PRN (10:19)
[2016-12-06] MEDS: LORazepam 1 MG TAB PO PRN (13:59)
[2016-12-06 18:00] VITALS: BP 99/61; PULSE 82; RESP 16; TEMP 98.2; O2SAT 99
[2016-12-06] MEDS ORDERED: OLANZapine 5 MG TAB PO SCH (21:00)
[2016-12-06] MEDS: diphenhydrAMINE HCL 50 MG CAP PO PRN (21:10)
[2016-12-06] MEDS: MIRTAZAPINE 15 MG TAB PO SCH (21:10)
[2016-12-07 05:28] VITALS: BP 104/68; PULSE 75; RESP 16; TEMP 97.6; O2SAT 96
[2016-12-07] MEDS: DOCUSATE SODIUM 100 MG CAP PO SCH ×2 (08:45→21:22)
[2016-12-07] MEDS: CITALOPRAM HYDROBROMIDE 20 MG TAB PO SCH (08:47)
--- NOTE | 2016-12-07 11:51 | HHI.PYPN ---
Subjective Remarks Patient seen and examined with nurse. Chart reviewed. Case discussed with nursing staff. On my exam today, patient remains highly anxious. Says he visited with his sister who found him not much improved and was hoping that he might be more stabilized before discharge. Sleep remains poor. Mood somewhat depressed. Says that besides the Celexa and Remeron he had tried Effexor previously but could not tolerate this agent owing to increased anxiety. We discuss titrating Zyprexa for sleep. We also discuss adjusting patient's primary antidepressant/anti-anxiety med, and he is agreeable to this. Denies side effects from medications. Review of Systems ROS Limitations: Poor Historian Except as stated in HPI: all other systems reviewed are Neg Objective Alert: Yes [place]: Person (once again oriented 3) Mood: Anxious, Depressed Affect: Restricted Memory Intact: Comment (Intact) Hallucinations: Other (No hallucinations) Delusions: No Delusion Type: Other (No isabel delusions) Suicidal: Ideation (Denies SI) Homicidal: Ideation (No HI) Insight/Judgment Poor Remarks No new motor abnormalities noted. TP linear. Grooming and hygiene fair. Labs Labs reviewed. Vitals/IOs Vital Signs Date Time Temp Pulse Resp B/P Pulse Ox O2 Delivery O2 Flow Rate FiO2 12/07/16 05:28 97.6 75 16 104/68 96 12/03/16 17:00 Room Air Intake and Output 12/06/16 12/06/16 12/07/16 08:00 16:00 00:00 Intake Total 480 ml Balance 480 ml Assessment & Plan Problem List: (1) Major depressive disorder, recurrent, moderate ICD Code: F33.1 (2) Other mixed anxiety disorders ICD Code: F41.3 (3) Alcohol dependence ICD Code: F10.20 Assessment & Plan Discontinue Celexa and replace with Prozac 20mg daily. R/B/A d/w pt. Titrate Zyprexa to 7.5mg qHS for sleep. Continue Remeron as ordered. Continue to monitor on the unit. Continue other medications and care as ordered. Justification for Cont. Inpt. Med changes in process. High risk for decompensation in less restrictive environment. Discharge Planning Anticipate discharge by the end of the week. Pending stabilization. Request HC Surrog/Guard Advoc?: No Problem Qualifiers (1) Alcohol dependence: Qualified Code: F10.21 - Alcohol dependence in remission Mark Melo MD Dec 07, 2016 11:51
[2016-12-07 18:00] VITALS: BP 122/65; PULSE 80; RESP 16; TEMP 98; O2SAT 98
[2016-12-07] MEDS ORDERED: OLANZapine 5 MG TAB PO SCH (21:00)
[2016-12-07] MEDS: MIRTAZAPINE 15 MG TAB PO SCH (21:23)
[2016-12-08 06:01] VITALS: BP 98/62; PULSE 70; RESP 16; TEMP 98
[2016-12-08] MEDS: DOCUSATE SODIUM 100 MG CAP PO SCH ×2 (08:19→21:47)
[2016-12-08] MEDS: FLUoxetine HCL 20 MG CAP PO SCH (08:20)
--- NOTE | 2016-12-08 13:11 | HHI.PYPN ---
Subjective Remarks Patient seen and examined with counselor and nurse. Chart reviewed. Case discussed with nursing staff. No behavioral issues noted. On my examination today, anxiety somewhat less. Patient finally slept overnight with titration of Zyprexa. No SI or HI. Denies side effects from medications. No new physical complaints. We discussed previous efforts at psychotherapy, and these sound more conversational in nature. I recommend a course of cognitive behavioral therapy for the patient's anxiety and have instructed the counselor to refer the patient accordingly on discharge. Review of Systems Except as stated in HPI: all other systems reviewed are Neg Objective Alert: Yes [place]: Person (oriented 3) Mood: Anxious (lessening), Depressed (improving) Affect: Other (more reactive) Memory Intact: Comment (intact) Hallucinations: Other (no AVH) Delusions: No Delusion Type: Other (no delusions) Suicidal: Ideation (no suicidal ideation) Homicidal: Ideation (no homicidal ideation) Insight/Judgment Fair Remarks No motor abnormalities Labs Labs reviewed Vitals/IOs Vital Signs Date Time Temp Pulse Resp B/P Pulse Ox O2 Delivery O2 Flow Rate FiO2 12/08/16 06:01 98.0 70 16 98/62 12/07/16 18:00 98 Intake and Output 12/07/16 12/07/16 12/08/16 08:00 16:00 00:00 Intake Total 240 ml 240 ml 240 ml Balance 240 ml 240 ml 240 ml Assessment & Plan Problem List: (1) Major depressive disorder, recurrent, moderate ICD Code: F33.1 (2) Other mixed anxiety disorders ICD Code: F41.3 (3) Alcohol dependence ICD Code: F10.20 Assessment & Plan Titrate Zyprexa to 10 mg at bedtime. Discontinue see what; no evidence of any withdrawal at this point. Continue other medications and care as ordered. Justification for Cont. Inpt. Medication changes in process. Discharge Planning Anticipate discharge tomorrow barring some clinical deterioration Request HC Surrog/Guard Advoc?: No Problem Qualifiers (1) Alcohol dependence: Qualified Code: F10.21 - Alcohol dependence in remission Mark Melo MD Dec 08, 2016 13:11
[2016-12-08 18:00] VITALS: BP 149/71; PULSE 80; RESP 17; TEMP 98.1; O2SAT 99
[2016-12-08] MEDS ORDERED: OLANZapine 10 MG TAB PO SCH (21:00)
[2016-12-08] MEDS: MIRTAZAPINE 15 MG TAB PO SCH (21:47)
[2016-12-09 05:33] VITALS: BP 143/74; PULSE 78; RESP 16; TEMP 97.7; O2SAT 95
[2016-12-09 07:51] VITALS: BP 137/77; PULSE 84; RESP 22; TEMP 98.6; O2SAT 98
[2016-12-09] MEDS ORDERED: ASPIRIN 81 MG CHEW TAB ONE (08:04)
[2016-12-09] MEDS: hydrOXYzine HCL 50 MG TAB PO PRN (08:15)
--- NOTE | 2016-12-09 08:42 | EKG ---
Date Performed: 12/09/2016 Time Performed: 08:09:38 PTAGE: 71 years EKG: Sinus rhythm NORMAL ECG PREVIOUS TRACING : 11/11/2016 16.15 Compared to previous EKG no significant change DOCTOR: Alex Norton Interpretating Date/Time 12/09/2016 08:40:54
[2016-12-09] MEDS: DOCUSATE SODIUM 100 MG CAP PO SCH (08:53)
[2016-12-09] MEDS: FLUoxetine HCL 20 MG CAP PO SCH (08:54)
[2016-12-09] MEDS ORDERED: MIRTA15 PO (11:34)
[2016-12-09] MEDS ORDERED: HYDR50TA94 PO (11:34)
[2016-12-09] MEDS ORDERED: FLUO20CA12 PO (11:34)
[2016-12-09] MEDS ORDERED: DOCU1CAP39 PO (11:34)
[2016-12-09] MEDS ORDERED: OLAN10TA PO (11:34)
--- NOTE | 2016-12-09 11:34 | HHI.DS ---
Psychiatry Discharge Summary Inpatient Psychiatric care?: Yes Advance Directive: No Reason Not Provided: NOT INTERESTED Mental Health AdvanceDirective: No Health Care Proxy: No Admission Admission Date Dec 03, 2016 at 17:36 Admission Diagnosis: (1) Major depressive disorder, recurrent, moderate ICD Code: F33.1 (2) Other mixed anxiety disorders ICD Code: F41.3 (3) Alcohol dependence ICD Code: F10.20 Brief History Mr. Newsome is a 71-year-old male with a reported history of depression and anxiety as well as a history of alcohol use issues reportedly in remission who presents on a Ortega act alleging that he sent text messages to a friend saying that he wanted to . Reviewing the electronic medical record, I note that the patient has a history of previous ED visits for substance use issues, and I myself saw the patient in consultation in August 2015. Patient seen and examined. Chart reviewed. Case discussed with nursing staff. On my examination today, the patient presents as quite anxious. He says that he has been feeling increasingly depressed and anxious over the last several weeks in connection with some somatic symptoms. He says that he has had trouble swallowing, he has been tremulous and constipated. He is feeling hopeless about his situation. Sleep is poor. He says "I'm scared I'm losing it." He endorses suicidal ideation but no plan. He says "I don't want to be like this." Denies any current or previous hypomanic or manic symptoms. Denies audiovisual hallucinations and I can elicit no delusional beliefs. The remainder of the psychiatric ROS is negative. Past psychiatric history: Patient reports a history of depression and anxiety. He follows at [facility] and his provider there reportedly recently changed his Klonopin to Ativan, which he admits he has been overusing somewhat on account of his anxiety, and also recently tapered his Remeron from 30-15 mg. He is also on a stable dose of Celexa. He denies a history of psychiatric admissions but says that he was detoxified from alcohol at [facility] 5 months ago and has been sober since then. He denies any history of suicide attempts. Family history: Patient denies any family history of mental illness, substance use disorder or suicide. Chemical dependency history: The patient endorses a history of alcohol and benzo dependence but says that he has been sober from alcohol since he left [facility] 5 months ago. He maintains that his benzodiazepine use has been as prescribed except for the last several days when he has been feeling acutely more anxious and he has over used them somewhat. Social history: The patient reports that he lives with a roommate. He is . He has 2 children and a grandchild. He has a bachelor's degree. 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 He served in the [employer] in the [employer] for 8 years. He denies any legal history. Denies any access to guns or firearms. He is a [employer]. Tobacco Use In Past 30 Days: No Tobacco Past 30 Days Alcohol Use: Never Hospital Course Patient was admitted to a locked, inpatient psychiatric unit. A neurological consultation was obtained because of patient's complaint of tremor, which was felt to be an intention tremor. Appropriate precautions were in place throughout patient's hospital stay. Patient was seen and examined daily on the unit by psychiatry and also visited by counselor. Psychotropic medications were adjusted. Patient had improvement in presenting psychiatric symptomatology during the course of his hospital stay. Significant dependent/ avoidant personality features appreciated in the present case. There was no evidence of any suicidality or homicidality on the inpatient unit. The patient remained in good behavioral control and was medication compliant. On the day of discharge: Patient seen and examined with nurse. Chart reviewed. Case discussed with nursing staff. Patient had an episode of chest pain this morning , I suspect due to anxiety about impending discharge. I have checked an EKG, which was read as normal sinus rhythm and cardiac enzymes have been obtained and are normal. Out of an abundance of caution, I have requested a hospitalist consultation prior to discharge. On my examination today, the patient feels better and feels ready for discharge from the inpatient unit. He does remain somewhat anxious, although this is lessened versus admission, and mood is likewise improved. He denies any suicidal or homicidal ideation, intent or plan on direct questioning and contracts for safety. No psychotic symptoms. Slept fairly well overnight. Denies side effects from medications. No physical complaints at this time. Weighing the acute, chronic, and protective factors and based on the available evidence, I diamond assorter to a reasonable degree of medical certainty that the patient is at low imminent risk of harm to self or others from a mental illness as defined under the Ortega act and his level of function is adequate for outpatient care. The patient has maximized benefit from this inpatient psychiatric hospital stay. He will be discharged home with psychiatric follow-up as arranged by the counselor once he has been medically cleared by the hospitalist executive consultant. Patient is also to follow-up with primary care. I counseled the patient to abstain from drugs and alcohol. I counseled the patient regarding warning signs for need to return to the psychiatric emergency room as part of a general safety plan. Results Blood Pressure 137 / 77 Vital Signs Date Time Temp Pulse Resp B/P Pulse Ox O2 Delivery O2 Flow Rate FiO2 12/09/16 07:51 98.6 84 22 137/77 98 Item Value Date Time White Blood Count 7.5 TH/MM3 12/03/16 1536 Hemoglobin 14.4 GM/DL 12/03/16 153 Platelet Count 190 TH/MM3 12/03/16 1536 Sodium Level 136 MEQ/L 12/04/16916 Potassium Level 4.1 MEQ/L 12/04/1617 Chloride Level 100 MEQ/L 12/04/1617 Carbon Dioxide Level 29.8 MEQ/L 12/04/1617 Blood Urea Nitrogen 8 MG/DL 12/04/16 0917 Creatinine 0.74 MG/DL 12/04/1617 Hemoglobin A1c 5.4 % 12/04/1617 Aspartate Amino Transf (AST/SGOT) 17 U/L 12/03/16 1536 Alanine Aminotransferase (ALT/SGPT) 18 U/L 12/03/16 1536 Alkaline Phosphatase 85 U/L 12/03/16 1536 Thyroid Stimulating Hormone 3rd Gen 1.420 uIU/ML 12/04/16 09 25-Hydroxy Vitamin D Total 35.6 ng/ML 12/04/1617 Vitamin B12 Level 732 PG/ML 12/04/16 0917 Urine Opiates Screen NEG 12/03/16 1536 Urine Barbiturates Screen NEG 12/03/16 1536 Urine Amphetamines Screen NEG 12/03/16 1536 Urine Benzodiazepines Screen NEG 12/03/16 1536 Urine Cocaine Screen NEG 12/03/16 1536 Urine Cannabinoids Screen NEG 12/03/16 1536 Ethyl Alcohol Level LESS THAN 3 MG/DL 12/03/16 1536 Item Value Date Time Total Creatine Kinase 219 U/L 12/09/16 1302 Creatine Kinase MB 2.1 NG/ML 12/09/16 1302 Troponin I LESS THAN 0.02 NG/ML L 12/09/16 1302 Summary of Procedures None done Imaging Last Impressions Brain MRI 12/05/16 0000 Signed Impressions: Service Date/Time: Monday, December 05, 2016 11:17 - CONCLUSION: Normal examination. Josh Preciado MD Pending results at discharge: No Medications # of Antipsychotic meds at D/C: 1 Approp Antipsych med options 1 - Minimum of three failed multiple trials of monotherapy. 2 - Documented plan to taper to monotherapy due to previous use of multiple meds OR cross-taper in progress at D/C. 3 - Documentation of augmentation of Clozapine. 4 - Justification other than those listed in allowable values 1-3, document here : Discharge Discharge Date: Dec 09, 2016 Discharge Diagnosis: (1) Other mixed anxiety disorders Diagnosis: Principal ICD Code: F41.3 (2) Major depressive disorder, recurrent, in partial remission Diagnosis: Secondary ICD Code: F33.41 (3) Dependent/avoidant personality traits Diagnosis: Secondary (4) Alcohol dependence Diagnosis: Secondary ICD Code: F10.20 Mental Status Exam at Disch Patient is casually dressed. He is well groomed. He is awake and alert and oriented 3. No evidence of delirium. No abnormal motor movements noted besides mild tremor as before. Speech is within normal limits for rate, tone and volume. Language and fund of knowledge seem average. Focus and concentration intact. Memory grossly intact on clinical exam. Mood improved versus admission, and affect fairly full and reactive. Thought process linear. No loosening of associations. No delusional material elicited. No audiovisual hallucinations. Denies suicidal or homicidal ideation, intent or plan. Insight and judgment are fair. Pt Condition on Discharge: Stable Discharge Disposition: Discharge Home Discharge Instructions Diet Instructions: As Tolerated, No Restrictions Activities you can perform: Weight Bearing as Travis Scheduled Appointment: as per counselor's notes New Medications: Docusate Sodium (Dok) 100 Mg Cap 100 MG PO BID Discontinue use if stools become loose. Constipation Days 15 Ref 1 CAP Fluoxetine (Fluoxetine) 20 Mg Capsule 20 MG PO DAILY Mental Health Days 15 Ref 1 CAP Hydroxyzine HCl (Hydroxyzine HCl) 50 Mg Tab 50 MG PO Q6H PRN ANXIETY #30 Ref 1 TAB Mirtazapine (Mirtazapine) 15 Mg Tab 30 MG PO HS Mental Health Days 15 Ref 1 TAB Olanzapine (Olanzapine) 10 Mg Tab 10 MG PO HS Mental Health Days 15 Ref 1 TAB Discontinued Medications: Lorazepam (Ativan) 0.5 Mg Tab 0.5 MG PO BID For mild anxiety / dyspnea Ref 0 TAB Mirtazapine (Remeron) 15 Mg Tab 15 MG PO HS Depression Control #30 Ref 0 TAB Discharge Time <= 30 minutes Discharge/Advance Care Plan Health Problems: (1) Major depressive disorder, recurrent, moderate (2) Other mixed anxiety disorders (3) Alcohol dependence Goals to promote your health * To prevent worsening of your condition and complications * To maintain your health at the optimal level Directions to meet your goals Take your medications as prescribed Follow your dietary instruction Follow activity as directed Keep your appointments as scheduled Take your immunizations and boosters as scheduled If your symptoms worsen call your PCP, if no PCP go to Urgent Care Center or Emergency Room For 12/12 questions related to your inpatient stay or results of tests pending at discharge, please contact Dr. Mark Melo at Smoking is Dangerous to Your Health. Avoid second hand smoking Problem Qualifiers (1) Alcohol dependence: Qualified Code: F10.21 - Alcohol dependence in remission Mark Melo MD Dec 09, 2016 11:34
[2016-12-09 13:53] LABS: CREATINE KINASE 219 U/L (39-308)
[2016-12-09 14:06] LABS: CKMB 2.1 NG/ML (0.5-3.6)
--- NOTE | 2016-12-09 15:38 | PD.CONS ---
HPI Service [facility] Consult Requested By Psychiatric team Reason for Consult Chest pain Primary Care Physician Non-Staff Diagnoses: History of Present Illness Written by Dawn Christianson, acting as scribe for Dr. Pedroza on 12/09/16 at 15:38. Patient seen earlier today approximately 12:15PM This is a pleasant 71-year-old male patient with past medical history which includes anxiety/depression and polysubstance abuse. Patient currently inpatient psychiatric center planning to be discharged later today. Patient had episode of chest pain felt like a band like pressure across the lower chest/ upper abdomen. Patient reports the pain lasted for approximately 30 minutes and resolved after Atarax. Patient reports this is consistent with his prior panic attacks. Patient not experience diaphoresis nausea vomiting or shortness of breath associated with this chest pain. EKG revealed sinus rhythm no acute ST changes. Patient offers no other complaints at this time. Patient denies chest pain at this time, shortness of breath, nausea, vomiting, diarrhea, constipation, fevers or chills. Review of Systems Except as stated in HPI: all other systems reviewed are Neg Past Family Social History Allergies: Coded Allergies: No Known Allergies (Unverified , 11/11/16) Past Medical History anxiety/depression and polysubstance abuse Past Surgical History Right inguinal hernia repair, left inguinal hernia repair 2, cataract surgery, appendectomy, right knee surgical repair not replaced Reported Medications Hydroxyzine HCl 50 Mg Tab 50 Mg PO Q6H PRN Olanzapine 10 Mg Tab 10 Mg PO HS 15 Days Mirtazapine 15 Mg Tab 30 Mg PO HS 15 Days Fluoxetine (Fluoxetine HCl) 20 Mg Capsule 20 Mg PO DAILY 15 Days Dok (Docusate Sodium) 100 Mg Cap 100 Mg PO BID 15 Days Discontinue use if stools become loose. Ativan (Lorazepam) 0.5 Mg Tab 0.5 Mg PO BID Remeron (Mirtazapine) 15 Mg Tab 15 Mg PO HS Active Ordered Medications Current Medications Medications (Trade) Dose Ordered Sig/Shabana Route Start Time Stop Time Status Last Admin (Benadryl) 50 mg HS PRN PO 12/03/16 17:45 12/06/16 21:10 (Tylenol) 650 mg Q4H PRN PO 12/03/16 17:45 12/09/16 08:15 (Milk Of Magnesia Liq) 30 ml DAILY PRN PO 12/03/16 17:45 (Mag-Al Plus Susp Liq) 30 ml Q6H PRN PO 12/03/16 17:45 12/05/16 14:53 (Atarax) 50 mg Q6H PRN PO 12/03/16 17:45 12/09/16 08:15 (Cogentin) 1 mg Q12H PRN PO 12/03/16 17:45 (Cogentin Inj) 1 mg Q12H PRN IM 12/03/16 17:45 (Pill Splitter) 1 ea UNSCH PRN OTHER 12/03/16 18:00 (Colace) 100 mg BID PO 12/03/16 21:00 12/09/16 08:53 (Dulcolax Ec) 10 mg DAILY PRN PO 12/03/16 18:15 (Remeron) 30 mg HS PO 12/04/16 21:00 12/08/16 21:47 (PROzac) 20 mg DAILY PO 12/08/16 09:00 12/09/16 08:54 (ZyPREXA) 10 mg HS PO 12/08/16 21:00 12/08/16 21:00 Family History Father secondary AAA Mother secondary to lung cancer Social History Patient denies EtOH use tobacco use or illicit drug use at this time Review of prior chart reviews patient used to drink between 12-16 beers a day as often as several months ago Physical Exam Vital Signs Vital Signs Date Time Temp Pulse Resp B/P Pulse Ox O2 Delivery O2 Flow Rate FiO2 12/09/16 07:51 98.6 84 22 137/77 98 12/09/16 05:33 97.7 78 16 143/74 95 12/08/16 18:00 98.1 80 17 149/71 99 Physical Exam GENERAL: This is a well-nourished, well-developed patient, in no apparent distress. SKIN: No rashes, ecchymoses or lesions. Cool and dry. HEAD: Atraumatic. Normocephalic. No temporal or scalp tenderness. EYES: Extraocular motions intact. No scleral icterus. No injection or drainage. CARDIOVASCULAR: Regular rate and rhythm RESPIRATORY: Clear to auscultation. Breath sounds equal bilaterally. No wheezes , rales, or rhonchi. GASTROINTESTINAL: Abdomen soft, non-tender, nondistended. No hepato-splenomegaly , or palpable masses. No guarding. MUSCULOSKELETAL: Extremities without clubbing, cyanosis, or edema. No joint tenderness, effusion, or edema noted. No calf tenderness. Negative Homans sign bilaterally. NEUROLOGICAL: Awake and alert. No focal deficits appreciated. Motor and sensory grossly within normal limits. Five out of 5 muscle strength in all muscle groups. Normal speech. Laboratory Laboratory Tests Test 12/09/16 13:02 Total Creatine Kinase 219 Creatine Kinase MB 2.1 Troponin I LESS THAN 0.02 Imaging Last Impressions Brain MRI 12/05/16 0000 Signed Impressions: Service Date/Time: Monday, December 05, 2016 11:17 - CONCLUSION: Normal examination. Josh Preciado MD Assessment and Plan Problem List: (1) Depression ICD Code: F32.9 Status: Acute (2) Chest pain ICD Code: R07.9 Status: Acute (3) Anxiety ICD Code: F41.9 Status: Acute Assessment and Plan This is a pleasant 71-year-old male patient with past medical history which includes anxiety/depression and polysubstance abuse. Patient currently inpatient psychiatric center planning to be discharged later today. Patient had episode of chest pain felt like a band like pressure across the lower chest/ upper abdomen. Patient reports the pain lasted for approximately 30 minutes and resolved after Atarax. Patient reports this is consistent with his prior panic attacks. Patient not experience diaphoresis nausea vomiting or shortness of breath associated with this chest pain. EKG revealed sinus rhythm no acute ST changes. Patient offers no other complaints at this time. Patient denies chest pain at this time, shortness of breath, nausea, vomiting, diarrhea, constipation, fevers or chills. Major depressive disorder, mixed anxiety disorder, EtOH dependence- management per psychiatric team Chest pain-resolved likely secondary to anxiety EKG reviewed reveals sinus rhythm no acute ST changes Patient reports this is consistent with his prior panic attacks and resolved after Atarax Patient cautioned chest pain returns or worsens immediately seek medical attention DVT prophylaxis patient is low risk and ambulatory Discussed with patient and nursing Patient cleared to discharge from medical standpoint. Recommend patient follow- up with PCP after discharge. Patient also instructed to seek immediate medical attention of chest pain returns or worsens. This note was transcribed by [email or web address] [Dawn Christianson]. I, Dr. Boyd Pedroza personally performed the history, physical exam, and medical decision making; and confirmed the accuracy of the information in the transcribed note. Authenticated by Dr. Boyd Pedroza on 12/09/16 at 1545. Problem Qualifiers (1) Depression: Qualified Code: F33.1 - Moderate episode of recurrent major depressive disorder Dawn Christianson Dec 09, 2016 15:38 Boyd Pedroza MD Dec 09, 2016 23:17
== END 2016-12-09 17:20 | disposition home or self-care (01) | DRG 885 ==
LOC: NEDAMB 13:59 → NEDA 17:36 → H260 20:10
PROVIDERS: ADMIT Psychiatry & Neurology Psychiatry; ATTEND Psychiatry & Neurology Psychiatry
DX: F33.1 Major depressive disorder, recurrent, moderate (principal); R45.851 Suicidal ideations; F10.21 Alcohol dependence, in remission; F41.0 Panic disorder [episodic paroxysmal anxiety]; G25.0 Essential tremor; Z96.651 Presence of right artificial knee joint; F60.7 Dependent personality disorder
CPT/HCPCS: 70553; 80048; 80053; 80061; 80307; 82306; 82550; 82552; 82607; 83036; 84443; 84484; 85025; 93005; A9579; Q0163

== ENCOUNTER 2016-12-27 23:44 | Inpatient (IN) | payer OTHER, MEDICARE ==
[~2016-12-27] VITALS: Ht 182.9 cm; Wt 68.7 kg
[2016-12-27 23:35] VITALS: O2SAT 97
[~2016-12-27 23:44] MED LIST changes: -BUSP15TA PO; -CITA20TA4 PO; -CLON0.5T PO; +DOCU1CAP39 PO; +FLUO20CA12 PO; +HYDR50TA94 PO; -MIRT30TA PO; +MIRTA15 PO; +OLAN10TA PO
[2016-12-27 23:46] VITALS: BP_SYST 119; BP_SYST 135; BP_DIAS 64; BP_DIAS 68; PULSE 102; PULSE 82; RESP 18; RESP 24; TEMP 99; O2SAT 97
[2016-12-27] MEDS ORDERED: SODIUM CHLOR 0.9% 1000 ML INJ 1,000 ML IV SCH (23:49)
[2016-12-28] VITALS (27 sets, daily range): BP systolic 97–140; BP diastolic 53–74; PULSE 76–98; RESP 17–30; TEMP 98.4–100.3; O2SAT 78–100
[2016-12-28] MEDS ORDERED: THIAMINE INJ 100 MG in SODIUM CHLORIDE 0.9% INJ 100 ML IV ONE ×2
[2016-12-28] MEDS ORDERED: SODIUM CHLORIDE 0.9% FLUSH 5 ML FLUSH IV FLUSH PRN
--- NOTE | 2016-12-28 00:19 | PD ---
HPI Chief Complaint: Fall Time Seen by Provider: 23:49 Travel History International Travel<30 days: No Contact w/Intl Traveler<30days: No Traveled to known affect area: No History of Present Illness HPI The patient is a 71-year-old male that was found on the floor by his roommate the patient has alcohol abuse and seizure disorder but no other medical history is known. He was found breathing on his own. The glucose level was 113 in the field. No head trauma other than a 1 cm scalp laceration was noted on the right occipital area. PFSH Past Medical History Arthritis: Yes Anxiety: Yes Depression: Yes Cancer: No (denied) Cardiovascular Problems: No (denied) Chemotherapy: No Cerebrovascular Accident: No Diabetes: No (denied) Diminished Hearing: No Endocrine: No Gastrointestinal Disorders: No Genitourinary: No Headaches: No (denied) Hiatal Hernia: Yes Immune Disorder: No Implanted Vascular Access Dvce: No Musculoskeletal: Yes Neurologic: No Psychiatric: Yes (Hx of depression and chronic anxiety) Reproductive: No Respiratory: No Immunizations Current: Yes (SHINGLES VACCINE 2014) Migraines: No Radiation Therapy: No Seizures: Yes (Pt had one seizure 6 years ago due to low sodium levels) Past Surgical History Abdominal Surgery: Yes (Hernia X's 3) Appendectomy: Yes Cardiac Surgery: No Ear Surgery: No Endocrine Surgery: No Eye Surgery: Yes (Cataract extraction) Genitourinary Surgery: No Gynecologic Surgery: No Neurologic Surgery: No Oral Surgery: No Thoracic Surgery: No Other Surgery: Yes (Appendectomy 1980, Herni Repair 1981, Herni Repair 1983, Herni Repair 1990) Social History Alcohol Use: Yes (States sober 5 months) Tobacco Use: No Substance Use: Yes (OVER USING ATIVAN) Allergies-Medications (Allergen,Severity, Reaction): Coded Allergies: No Known Allergies (Unverified , 11/11/16) Reported Meds & Prescriptions Reported Meds & Active Scripts Active Olanzapine 10 Mg Tab 10 Mg PO HS 15 Days Mirtazapine 15 Mg Tab 30 Mg PO HS 15 Days Review of Systems Except as stated in HPI: all other systems reviewed are Neg Physical Exam Narrative GENERAL: The patient is breathing both her mouth and nose, oximetry is 97% on 4 L nasal cannula. He does not smell of ketones or alcohol. He does appear at least moderately dehydrated. SKIN: Focused skin assessment warm/dry. On the right occipital area of the scalp there is a 1 cm shallow scalp laceration which is not actively bleeding. HEAD: Atraumatic. Normocephalic. There is neither raccoon eyes nor wiggins sign present. EYES: Pupils equal and round. No scleral icterus. No injection or drainage. ENT: No nasal bleeding or discharge. Mucous membranes pink and moist. No hemotympanum is noted. NECK: Trachea midline. No JVD. No obvious deformities noted. CARDIOVASCULAR: Regular rate and rhythm. No murmur appreciated. RESPIRATORY: No accessory muscle use. Clear to auscultation. Breath sounds equal bilaterally. GASTROINTESTINAL: Abdomen soft, non-tender, nondistended. Hepatic and splenic margins not palpable. MUSCULOSKELETAL: No obvious deformities. No clubbing. No cyanosis. No edema. NEUROLOGICAL: The patient is comatose breeze on his own and moves all 4 extremities to noxious stimulation. He does have a gag reflex. PSYCHIATRIC: Appropriate mood and affect; insight and judgment normal. Data Data Last Documented VS Vital Signs Date Time Temp Pulse Resp B/P Pulse Ox O2 Delivery O2 Flow Rate FiO2 12/27/16 23:46 99.0 82 18 119/68 12/27/16 23:35 97 Nasal Cannula 4.[address] Brain W/O Iv Contrast(Rout) (12/27/16 23:49) Ct Thorax/ Chest Wo Iv Contras (12/27/16 23:49) Ct Abd/Pel W/O Iv Contrast (12/27/16 23:49) Ct Cerv Spine W/O Contrast (12/27/16 23:49) Electrocardiogram (12/27/16 23:49) Ammonia (12/27/16 23:49) Complete Blood Count With Diff (12/27/16 23:49) Comprehensive Metabolic Panel (12/27/16 23:49) Creatine Kinase (Cpk) (12/27/16 23:49) Prothrombin Time / Inr (Pt) (12/27/16 23:49) Act Partial Throm Time (Ptt) (12/27/16 23:49) Troponin I (12/27/16 23:49) Urinalysis - C+S If Indicated (12/27/16 23:49) Blood Glucose (12/27/16 23:49) Ecg Monitoring (12/27/16 23:49) Iv Access Insert/Monitor (12/27/16 23:49) Oximetry (12/27/16 23:49) Sodium Chloride 0.9% Flush (Ns Flush) (12/28/16 00:00) Sodium Chlor 0.9% 1000 Ml Inj (Ns 1000 M (12/27/16 23:49) Thiamine Inj (Thiamine Inj) (12/28/16 00:00) Drug Screen, Random Urine (12/27/16 23:49) Alcohol (Ethanol) (12/27/16 23:49) Tylenol (Acetaminophen) (12/27/16 23:49) Salicylates (Aspirin) (12/27/16 23:49) Urinary Catheter Insert/Apply (12/27/16 23:56) Lactic Acid (12/28/16 00:19) CKMB (12/28/16 00:00) CKMB% (12/28/16 00:00) Sodium Chlor 0.9% 1000 Ml Inj (Ns 1000 M (12/28/16 01:00) Blood Culture (12/28/16 01:15) Vancomycin Inj (Vancomycin Inj) (12/28/16 01:30) Finger ([id number]) (12/28/16 01:29) Admit Order (Ed Use Only) (12/28/16 01:49) Osmolality,Serum (12/28/16 01:51) Osmolality, Urine (12/28/16 01:51) Sodium, Random Urine (12/28/16 01:51) Thyroid Stimulating Hormone (12/28/16 01:51) Cortisol (12/28/16 01:51) Uric Acid (12/28/16 01:51) Triglycerides (12/28/16 01:51) Sodium (Na) (12/28/16 04:00) Sodium (Na) (12/28/16 08:00) Sodium (Na) (12/28/16 12:00) Sodium (Na) (12/28/16 16:00) Sodium (Na) (12/28/16 20:00) Sodium (Na) (12/29/16 00:00) Sodium (Na) (12/29/16 04:00) Sodium (Na) (12/29/16 08:00) Sodium (Na) (12/29/16 12:00) Sodium (Na) (12/29/16 16:00) Sodium (Na) (12/29/16 20:00) Sodium (Na) (12/30/16 00:00) Labs Laboratory Tests Test 12/28/16 12/28/16 00:00 00:15 White Blood Count 18.5 TH/MM3 Red Blood Count 4.13 MIL/MM3 Hemoglobin 12.9 GM/DL Hematocrit 37.5 % Mean Corpuscular Volume 90.8 FL Mean Corpuscular Hemoglobin 31.1 PG Mean Corpuscular Hemoglobin 34.3 % Concent Red Cell Distribution Width 11.6 % Platelet Count 244 TH/MM3 Mean Platelet Volume 7.6 FL Neutrophils (%) (Auto) 86.2 % Lymphocytes (%) (Auto) 4.5 % Monocytes (%) (Auto) 9.2 % Eosinophils (%) (Auto) 0.0 % Basophils (%) (Auto) 0.1 % Neutrophils # (Auto) 16.0 TH/MM3 Lymphocytes # (Auto) 0.8 TH/MM3 Monocytes # (Auto) 1.7 TH/MM3 Eosinophils # (Auto) 0.0 TH/MM3 Basophils # (Auto) 0.0 TH/MM3 CBC Comment AUTO DIFF Differential Total Cells 100 Counted Neutrophils % (Manual) 79 % Band Neutrophils % 3 % Lymphocytes % 7 % Monocytes % 11 % Neutrophils # (Manual) 15.2 TH/MM3 Differential Comment FINAL DIFF MANUAL Platelet Estimate NORMAL Platelet Morphology Comment NORMAL Red Cell Morphology Comment NORMAL Prothrombin Time 12.0 SEC Prothromb Time International 1.1 RATIO Ratio Activated Partial 27.4 SEC Thromboplast Time Sodium Level 108 MEQ/L Potassium Level 3.8 MEQ/L Chloride Level 74 MEQ/L Carbon Dioxide Level 22.7 MEQ/L Anion Gap 11 MEQ/L Blood Urea Nitrogen 11 MG/DL Creatinine 0.58 MG/DL Estimat Glomerular Filtration 139 ML/MIN Rate Random Glucose 105 MG/DL Calcium Level 7.9 MG/DL Total Bilirubin 1.6 MG/DL Aspartate Amino Transf 83 U/L (AST/SGOT) Alanine Aminotransferase 32 U/L (ALT/SGPT) Alkaline Phosphatase 89 U/L Ammonia 13 MCMOL/L Total Creatine Kinase 3294 U/L Creatine Kinase MB 20.4 NG/ML Creatine Kinase MB % 0.6 % Troponin I 0.03 NG/ML Total Protein 6.5 GM/DL Albumin 3.6 GM/DL Acetaminophen Level LESS THAN 2.0 MCG/ML Ethyl Alcohol Level LESS THAN 3 MG/DL Urine Collection Type CATH Urine Color YELLOW Urine Turbidity CLEAR Urine pH 6.0 Urine Specific [place] 1.017 Urine Protein NEG mg/dL Urine Glucose (UA) NEG mg/dL Urine Ketones 40 mg/dL Urine Occult Blood SMALL Urine Nitrite NEG Urine Bilirubin NEG Urine Leukocyte Esterase NEG Urine RBC 0-3 /hpf Urine Squamous Epithelial 0-5 /hpf Cells Urine Mucus FEW /lpf Urine Sperm Microscopic Urinalysis Comment CATH-CULT NOT IND Salicylates Level LESS THAN 1.7 MG/DL Urine Opiates Screen NEG Urine Barbiturates Screen NEG Urine Amphetamines Screen NEG Urine Benzodiazepines Screen NEG Urine Cocaine Screen NEG Urine Cannabinoids Screen NEG MDM Medical Decision Making Medical Screen Exam Complete: Yes Emergency Medical Condition: Yes Medical Record Reviewed: Yes Differential Diagnosis Intracranial bleed, sepsis, hepatic encephalopathy, alcohol intoxication, toxic encephalopathy, pneumonia, UTI, cervical spine fracture, skull fracture, altered mental status, electrolyte disorder Narrative Course The patient has hyponatremia, sepsis, altered mental status. I discussed the patient with Dr. Palafox and the patient will be transferred at [facility] to the ICU. We have no beds here at this hospital. Procedures EKG Prior to Arrival: No Sepsis Criteria SIRS Criteria (2 or more): Heart rate over 90, RR > 20 or PaCO2 < 32, WBC > 42251, < 4000 or > 10% bands Severe Sepsis (+one): Organ Dysfunction Criteria Outcome: Meets sepsis criteria Diagnosis Primary Impression: Sepsis Additional Impressions: Hyponatremia Altered mental status Pneumonia Malachi Hernandez MD Dec 28, 2016 00:19
[2016-12-28 00:25] LABS: APTT (PATIENT) 27.4 SEC (24.3-30.1); INTERNATIONAL NORMALIZED RATIO 1.1 RATIO
[2016-12-28 00:28] LABS: BLOOD, URINE SMALL (NEG); GLUCOSE,URINE NEG (NEG); KETONE, URINE 40 mg/dL (NEG); NITRITE,URINE NEG (NEG)
[2016-12-28 00:37] LABS: ALKALINE PHOSPHATASE 89 U/L (45-117); ALT (GPT) 32 U/L (12-78); ANION GAP 11 MEQ/L (5-15); AST (GOT) 83 U/L (15-37); BICARBONATE 22.7 MEQ/L (21.0-32.0); BLOOD UREA NITROGEN 11 MG/DL (7-18); CHLORIDE 74 MEQ/L (98-107); GLOMERULAR FILTRATION RATE 139 ML/MIN (>89); POTASSIUM 3.8 MEQ/L (3.5-5.1); TOTAL BILIRUBIN ADULT 1.6 MG/DL (0.2-1.0)
[2016-12-28 00:41] LABS: BASOPHIL % 0.1 % (0.0-2.0); HEMATOCRIT 37.5 % (39.0-51.0); LYMPH % 4.5 % (9.0-44.0); LYMPHOCYTE # 0.8 TH/MM3 (1.0-4.8); MEAN CELL VOLUME 90.8 FL (80.0-100.0); MEAN CORPUSCULAR HEMOGLOBIN 31.1 PG (27.0-34.0); MEAN CORPUSCULAR HGB CONC 34.3 % (32.0-36.0); MONO % 9.2 % (0.0-8.0); NEUT % 86.2 % (16.0-70.0); PLATELET COUNT 244 TH/MM3 (150-450); RED BLOOD COUNT 4.13 MIL/MM3 (4.50-5.90); RED CELL DISTRIBUTION WIDTH 11.6 % (11.6-17.2); WHITE BLOOD COUNT 18.5 TH/MM3 (4.0-11.0)
[2016-12-28 00:44] LABS: HEMO FLAGS AUTO DIFF
[2016-12-28 00:47] LABS: CREATINE KINASE 3294 U/L (39-308)
[2016-12-28 00:48] LABS: ALCOHOL LESS THAN 3 MG/DL (0-5)
[2016-12-28 00:49] LABS: SODIUM (NA) 108 MEQ/L (136-145)
[2016-12-28 00:53] LABS: METHOD OF COLLECTION CATH; MUCUS URINE FEW /lpf (OCC); URINE COLOR YELLOW (YELLW/STRAW)
[2016-12-28 00:54] LABS: RBC, URINE 0-3 /hpf (0-3); SQUAMOUS EPITHELIAL CELL URINE 0-5 /hpf (0-5)
[2016-12-28 00:55] LABS: COMMENT (UR) CATH-CULT NOT IND; CULTURE IF INDICATED CATH CULTURE NOT IND
[2016-12-28 01:03] LABS: BANDS 3 % (0-6); NEUTROPHIL # MANUAL DIFF 15.2 TH/MM3 (1.8-7.7); PLATELET ESTIMATE SMEAR NORMAL (NORMAL); PLATELET MORPHOLOGY NORMAL (NORMAL); POLYS (SEG NEUTROPHILS) 79 % (16-70); SCAN/DIFF FINAL DIFF MANUAL; WBC DIFF SAMPLE 100
--- NOTE | 2016-12-28 01:04 | RADRPT ---
EXAM DATE/TIME: 12/28/2016 00:35 [facility] COMPARISON: CT BRAIN W/O CONTRAST, April 25, 2016, 11:48. INDICATIONS : Trauma. Unresponsive. Possible seizure. RADIATION DOSE: 65.02 CTDIvol (mGy) MEDICAL HISTORY : None SURGICAL HISTORY : Appendectomy. Hernia repair. ENCOUNTER: Initial ACUITY: 1 day PAIN SCALE: Non-responsive LOCATION: cranial TECHNIQUE: Multiple contiguous axial images were obtained of the head. Using automated exposure control and adj ustment of the mA and/or kV according to patient size, radiation dose was kept as low as reasonably a chievable to obtain optimal diagnostic quality images. DICOM format image data is available electro nically for review and comparison. FINDINGS: CEREBRUM: The ventricles are normal for age. No evidence of midline shift, mass lesion, hemorrhage or acute in farction. No extra-axial fluid collections are seen. POSTERIOR FOSSA: The cerebellum and brainstem are intact. The 4th ventricle is midline. The cerebellopontine angle i s unremarkable. EXTRACRANIAL: The visualized portion of the orbits is intact. SKULL: The calvaria is intact. No evidence of skull fracture. CONCLUSION: No acute disease. Steven Camargo MD on December 28, 2016 at 1:02 Board Certified Radiologist. This report was verified electronically.
--- NOTE | 2016-12-28 01:10 | RADRPT ---
EXAM DATE/TIME: 12/28/2016 00:35 [facility] COMPARISON: CT CERVICAL SPINE W/O CONTRAST, April 25, 2016, 11:48. INDICATIONS : Trauma. Unresponsive. Possible seizure. RADIATION DOSE: 26.70 CTDIvol (mGy) MEDICAL HISTORY : None SURGICAL HISTORY : Appendectomy. Hernia repair. ENCOUNTER: Initial ACUITY: 1 day PAIN SCALE: Non-responsive LOCATION: neck TECHNIQUE: Volumetric scanning of the cervical spine was performed. Multiplanar reconstructions in the sagittal, coronal and oblique axial planes were performed. Using automated exposure control and adjustment o f the mA and/or kV according to patient size, radiation dose was kept as low as reasonably achievable to obtain optimal diagnostic quality images. DICOM format image data is available electronically f or review and comparison. FINDINGS: There is no prevertebral soft tissue swelling. The odontoid process is intact. No compression deformi ty. Ankylosis of the ilateral C2-3 facet joints, and C4-5 C6-7 facet joints identified. There is inte rvertebral fusion across C5-6 and C6-7 with grade 1 anterolisthesis of C7 on T1 again noted. Moderate facet arthropathy at C3-4 bilaterally. There is uncovertebral hypertrophy at C3-4 and C4-5. Severe b ilateral foraminal narrowing at C3-4 secondary to facet and uncovertebral hypertrophy. Severe right f oraminal stenosis at C4-5. Severe foraminal narrowing at C5-6 on the left C6-7 on the left. CONCLUSION: 1. Degenerative changes are identified without evidence for acute fracture. Steven Camargo MD on December 28, 2016 at 1:07 Board Certified Radiologist. This report was verified electronically.
--- NOTE | 2016-12-28 01:14 | RADRPT ---
EXAM DATE/TIME: 12/28/2016 00:41 [facility] COMPARISON: CT THORAX W CONTRAST, September 16, 2015, 15:19. CT ABDOMEN & PELVIS W/O CONTRAST, December 28, 2016, 0:41 . INDICATIONS : Trauma. Unresponsive. Possible seizure. RADIATION DOSE: 17.45 CTDIvol (mGy) ; Combined studies - Thorax/Abdomen/Pelvis MEDICAL HISTORY : None SURGICAL HISTORY : Appendectomy. Hernia repair. ENCOUNTER: Initial ACUITY: 1 day PAIN SCALE: Non-responsive LOCATION: chest TECHNIQUE: Volumetric scanning of the chest was performed. Using automated exposure control and adjustment of t he mA and/or kV according to patient size, radiation dose was kept as low as reasonably achievable to obtain optimal diagnostic quality images. DICOM format image data is available electronically for r eview and comparison. Follow-up recommendations for incidentally detected pulmonary nodules are based at a minimum on nodul e size and patient risk factors according to Fleischner Society Guidelines. FINDINGS: There is consolidation in the superior segment of the left lower lobe possibly related to aspiration or pulmonary contusion. Minimal right upper lobe infiltrate posteriorly along the oblique fissure. Th e esophagus is dilated and fluid-filled. There is moderate gastric distention. Calcified granulomas i n the spleen are noted as well as calcified bilateral hilar, subcarinal and precarinal lymph nodes as well as right paratracheal lymph nodes. Atherosclerotic calcifications of the aorta and coronary art eries are identified. There is bilateral gynecomastia. Review of bone windows demonstrate a nonacute left scapular fracture, nonacute left second, third, fourth, fifth through eighth rib fractures and d egenerative changes of the spine. CONCLUSION: 1. There is consolidation in the left lower lobe superior segment which maybe related to aspiration o r contusion. 2. Minimal right upper lobe infiltrate. 3. Atherosclerosis. 4. Gynecomastia. 5. Remote fractures. Steven Camargo MD on December 28, 2016 at 1:09 Board Certified Radiologist. This report was verified electronically.
--- NOTE | 2016-12-28 01:16 | RADRPT ---
EXAM DATE/TIME: 12/28/2016 00:41 [facility] COMPARISON: CT ABDOMEN & PELVIS W CONTRAST, September 16, 2015, 15:19. CT THORAX W/O CONTRAST, December 28, 2016, 0:41 . INDICATIONS : Trauma. Unresponsive. Possible seizure. ORAL CONTRAST: No oral contrast ingested. RADIATION DOSE: 17.45 CTDIvol (mGy) ; Combined studies - Thorax/Abdomen/Pelvis MEDICAL HISTORY : None SURGICAL HISTORY : Appendectomy. Hernia repair. ENCOUNTER: Initial ACUITY: 1 day PAIN SCALE: Non-responsive LOCATION: upper quadrant lower quadrant TECHNIQUE: Volumetric scanning of the abdomen and pelvis was performed. Using automated exposure control and ad justment of the mA and/or kV according to patient size, radiation dose was kept as low as reasonably achievable to obtain optimal diagnostic quality images. DICOM format image data is available electro nically for review and comparison. FINDINGS: There is patchy consolidation in the left lower lobe. There is moderate distention of the stomach and the esophagus is dilated and fluid-filled. There are degenerative changes of the spine and dextrosco liosis. Calcified splenic granulomas. Liver, gallbladder, pancreas, adrenals, kidneys are unremarkabl e. Urinary bladder has a Swan catheter in place. A moderate amount of stool is present in the rectos igmoid. Atherosclerotic calcifications of the aorta and iliac vessels. No adenopathy. Fat-containing umbilical hernia. Fat-containing right inguinal hernia. CONCLUSION: 1. Moderate gastric distention. 2. Left lower lobe consolidation. 3. Dilated esophagus. 4. Calcified splenic granulomas. 5. Right inguinal hernia and fat-containing umbilical hernia. 6. Atherosclerosis. Steven Camargo MD on December 28, 2016 at 1:12 Board Certified Radiologist. This report was verified electronically.
[2016-12-28 01:28] LABS: CKMB 20.4 NG/ML (0.5-3.6)
[2016-12-28] MEDS ORDERED: VANCOMYCIN INJ 1,750 MG in SODIUM CHLORID 0.9% 500 ML INJ 500 ML IV ONE (01:30)
[2016-12-28 01:38] LABS: ACETAMINOPHEN LESS THAN 2.0 MCG/ML (10.0-30.0)
[2016-12-28] MEDS ORDERED: SODIUM CHLOR 0.9% 1000 ML INJ 1,000 ML IV SCH (01:54)
--- NOTE | 2016-12-28 01:56 | RADRPT ---
EXAM DATE/TIME: 12/28/2016 01:40 [facility] COMPARISON: No previous studies available for comparison. INDICATIONS : Right hand, fifth digit trauma. Unresponsive. MEDICAL HISTORY : None. SURGICAL HISTORY : None. ENCOUNTER: Initial ACUITY: 1 day PAIN SCORE: Non-responsive. LOCATION: Right hand, fifth digit. FINDINGS: There is dislocation of the fifth digit at the PIP joint. There is dorsal dislocation of the middle p halanx with respect to the proximal phalanx. An obvious fracture fragment is not seen. CONCLUSION: Fifth PIP joint dislocation. Steven Camargo MD on December 28, 2016 at 1:55 Board Certified Radiologist. This report was verified electronically.
[2016-12-28] MEDS ORDERED: MISCELLANEOUS NURSING INFORMATION XX SCH (02:00)
[2016-12-28] MEDS ORDERED: ONDANSETRON HCL 4 MG/2 ML VIAL IV PRN (02:00)
[2016-12-28] MEDS ORDERED: MAGNESIUM HYDROXIDE SUSP 30 ML CUP PO PRN (02:00)
[2016-12-28] MEDS ORDERED: CHLORHEXIDINE GLUCONATE 2 % 1 PACK (2 CLOTHS) TOP PRN (02:00)
[2016-12-28] MEDS ORDERED: SODIUM CHLORIDE 0.9% FLUSH 10 ML FLUSH IV FLUSH PRN (02:00)
[2016-12-28] MEDS ORDERED: BISACODYL 10 MG SUPP RECTAL PRN (02:00)
[2016-12-28] MEDS ORDERED: LACTULOSE SYRUP 20 GM/30 ML CUP PO PRN (02:00)
[2016-12-28] MEDS ORDERED: SENNOSIDES 8.6 MG TAB PO PRN (02:00)
[2016-12-28] MEDS ORDERED: RESP: ALBUTEROL 2.5 MG/3 ML NEB (PRN) INH (02:00)
[2016-12-28] MEDS: SODIUM CHLOR 0.9% 1000 ML INJ 1,000 ML IV SCH ×2 (02:03→03:06)
[2016-12-28] MEDS: PIPERACIL-TAZO 4.5 GM PREMIX 100 ML IV SCH ×4 (02:14→21:24)
[2016-12-28 02:15] LABS: BLOOD GAS BASE EXCESS -3.4 mmol/L (-2-2); BLOOD GAS CARBOXYHEMOGLOBIN 1.5 % (0-4); BLOOD GAS HCO3 20 mmol/L (22-26); BLOOD GAS METHEMOGLOBIN 1.2 % (0-2); BLOOD GAS O2 HGB SATURATION 96 % (90-100); BLOOD GAS PCO2 26 mmHG (38-42); BLOOD GAS PO2 92 mmHG (61-120); BLOOD GAS TOTAL HGB 11.8 G/DL (12.0-16.0); CRITICAL VALUE NO; DRAW SITE RT RADIAL; LITER FLOW 3 L/M; NUMBER OF ARTERIAL PUNCTURES 1; OXYGEN DEVICE NASAL CANNULA; STAT YES; TEMP CORR TO 98.6; ULNAR PULSE Y
[2016-12-28 03:33] LABS: CORTISOL 72.3 MCG/DL
--- NOTE | 2016-12-28 04:43 | HHI.HP ---
HPI Service Critical Care Medicine Primary Care Physician Unknown Admission Diagnosis toxic encephalopathy, sepsis, hyponatremia Diagnosis: (1) Multiple fractures of ribs of left side Diagnosis: Principal (2) Hypo-osmolality and hyponatremia Diagnosis: Principal (3) Altered mental status Diagnosis: Principal (4) Depression Diagnosis: Principal (5) Anxiety Diagnosis: Principal (6) Scapula fracture Diagnosis: Principal (7) Dislocation of PIP joint of finger Diagnosis: Principal (8) Cervical disc disease Diagnosis: Principal Chief Complaint: Found by friend confused Travel History International Travel<30 Days: No Contact w/Intl Traveler <30 Da: No Traveled to Known Affected Are: No History of Present Illness This is a 71-year-old male. Date of admission 12/28/2016. Past medical history includes depression/anxiety and hypertension. He has a history of alcoholism with unknown current usage. Toxicology screen negative at this facility. Patient presents to [facility] with altered mental status. According to records, patient was found by her roommate confused for unknown duration of time. CT head revealed no acute intracranial findings. CT thorax revealed left lower lobe pneumonia, right upper lobe pneumonia with calcified lymph nodes in the hilar/subcarinal and pericarinal regions and paratracheal regions. Also, left scapular fracture and left ribs 2, 3, 4, 5, [address] C-spine showed foraminal narrowing/ankylosis. CT abdomen/pelvis revealed gastric distention, dilated esophagus, splenic calcifications, right inguinal hernia with fat and umbilical hernia and atherosclerotic vascular disease. Pertinent laboratories revealed a sodium of 108. Leukocytosis of 18,000. ED physician gave patient 3 L normal saline wide open. Repeat sodium for sodium was 1:15. We are asked to admit. Review of Systems ROS Limitations: Altered Mental Status Past Family Social History Allergies: Coded Allergies: No Known Allergies (Unverified , 11/11/16) Past Medical History Depression Anxiety History of hypertension Prior alcoholism Tobaccoism Past Surgical History Cataract Appendectomy Left total hip arthroplasty Right inguinal hernia repair Left inguinal hernia repair 2 Reported Medications Olanzapine 10 mg by mouth at night. Mirtazapine 15 mg by mouth at night Active Ordered Medications Reviewed in EMR Family History Father has aphthous-like vascular disease/physician. Mother from lung cancer. Social History History 12-18 beers daily. Positive tobaccoism. Physical Exam Vital Signs Vital Signs Date Time Temp Pulse Resp B/P Pulse Ox O2 Delivery O2 Flow Rate FiO2 12/28/16 02:18 96 20 140/67 97 Nasal Cannula 3 12/28/16 01:53 86 22 118/65 98 Nasal Cannula 3 12/28/16 01:18 100.3 82 22 135/64 98 Nasal Cannula 3 12/28/16 00:54 81 24 118/64 97 Nasal Cannula 3 12/28/16 00:05 99.3 80 24 120/74 99 Nasal Cannula 3 12/27/16 23:46 99.0 82 18 119/68 12/27/16 23:35 97 Nasal Cannula 4.00 12/27/16 23:35 97 4.00 Physical Exam GENERAL: 71-year-old male, critically ill currently resting in bed confused SKIN: Warm and dry. Well perfused HEAD: Atraumatic. Normocephalic. EYES: Pupils equal and round. About 2 mm bilaterally and reactive. No scleral icterus. No injection or drainage. ENT: No nasal bleeding or discharge. Mucous membranes pink and moist. NECK: Trachea midline. No JVD. CARDIOVASCULAR: Regular rate and rhythm. S1, S2 without murmur RESPIRATORY: Clear to auscultation. Breath sounds equal bilaterally. GASTROINTESTINAL: Abdomen soft, non-tender, nondistended. Hepatic and splenic margins not palpable. MUSCULOSKELETAL: Extremities without significant peripheral edema. Dislocated proximal right PIP. No obvious deformities. NEUROLOGICAL: Awake and alert. Attempting to get out of bed. Moves all 4 extremities spontaneously. No obvious motor deficits.. Nonsensical speech. Laboratory Laboratory Tests Test 12/28/16 12/28/16 12/28/16 12/28/16 00:00 00:15 01:42 02:03 White Blood Count 18.5 Red Blood Count 4.13 Hemoglobin 12.9 Hematocrit 37.5 Mean Corpuscular Volume 90.8 Mean Corpuscular Hemoglobin 31.1 Mean Corpuscular Hemoglobin 34.3 Concent Red Cell Distribution Width 11.6 Platelet Count 244 Mean Platelet Volume 7.6 Neutrophils (%) (Auto) 86.2 Lymphocytes (%) (Auto) 4.5 Monocytes (%) (Auto) 9.2 Eosinophils (%) (Auto) 0.0 Basophils (%) (Auto) 0.1 Neutrophils # (Auto) 16.0 Lymphocytes # (Auto) 0.8 Monocytes # (Auto) 1.7 Eosinophils # (Auto) 0.0 Basophils # (Auto) 0.0 CBC Comment AUTO DIFF Differential Total Cells 100 Counted Neutrophils % (Manual) 79 Band Neutrophils % 3 Lymphocytes % 7 Monocytes % 11 Neutrophils # (Manual) 15.2 Differential Comment FINAL DIFF MANUAL Platelet Estimate NORMAL Platelet Morphology Comment NORMAL Red Cell Morphology Comment NORMAL Prothrombin Time 12.0 Prothromb Time International 1.1 Ratio Activated Partial 27.4 Thromboplast Time Sodium Level 108 Potassium Level 3.8 Chloride Level 74 Carbon Dioxide Level 22.7 Anion Gap 11 Blood Urea Nitrogen 11 Creatinine 0.58 Estimat Glomerular Filtration 139 Rate Random Glucose 105 Calcium Level 7.9 Total Bilirubin 1.6 Aspartate Amino Transf 83 (AST/SGOT) Alanine Aminotransferase 32 (ALT/SGPT) Alkaline Phosphatase 89 Ammonia 13 Total Creatine Kinase 3294 Creatine Kinase MB 20.4 Creatine Kinase MB % 0.6 Troponin I 0.03 Total Protein 6.5 Albumin 3.6 Triglycerides Level 31 Thyroid Stimulating Hormone 2.060 3rd Gen Acetaminophen Level LESS THAN 2.0 Ethyl Alcohol Level LESS THAN 3 Urine Collection Type CATH Urine Color YELLOW Urine Turbidity CLEAR Urine pH 6.0 Urine Specific [place] 1.017 Urine Protein NEG Urine Glucose (UA) NEG Urine Ketones 40 Urine Occult Blood SMALL Urine Nitrite NEG Urine Bilirubin NEG Urine Leukocyte Esterase NEG Urine RBC 0-3 Urine Squamous Epithelial 0-5 Cells Urine Mucus FEW Urine Sperm Microscopic Urinalysis Comment CATH-CULT NOT IND Serum Osmolality 231 Uric Acid 4.8 Random Cortisol 72.3 Salicylates Level LESS THAN 1.7 Urine Opiates Screen NEG Urine Barbiturates Screen NEG Urine Amphetamines Screen NEG Urine Benzodiazepines Screen NEG Urine Cocaine Screen NEG Urine Cannabinoids Screen NEG Lactic Acid Level 1.4 Blood Gas Puncture Site RT RADIAL Blood Gas Patient Temperature 98.6 Blood Gas HCO3 20 Blood Gas Base Excess -3.4 Blood Gas Oxygen Saturation 96 Arterial Blood pH 7.49 Arterial Blood Partial 26 Pressure CO2 Arterial Blood Partial 92 Pressure O2 Arterial Blood Oxygen Content 16.0 Arterial Blood 1.5 Carboxyhemoglobin Arterial Blood Methemoglobin 1.2 Blood Gas Hemoglobin 11.8 Oxygen Delivery Device NASAL CANNULA Blood Gas Liter Flow 3 Test 12/28/16 03:35 Troponin I 0.04 Date/Time Procedure Status Source Growth 12/28/16 01:20 Aerobic Blood Culture Received Blood Peripheral Pending 12/28/16 01:20 Anaerobic Blood Culture Received Blood Peripheral Pending Result Diagram: 12/28/16 0000 12/28/16 0000 Imaging Last Impressions Finger X-Ray 12/28/16 0129 Signed Impressions: Service Date/Time: Wednesday, December 28, 2016 01:40 - CONCLUSION: Fifth PIP joint dislocation. Steven Camargo MD Head CT 12/27/162348 Signed Impressions: Service Date/Time: Wednesday, December 28, 2016 00:35 - CONCLUSION: No acute disease. Steven Camargo MD Chest CT 12/27/162348 Signed Impressions: Service Date/Time: Wednesday, December 28, 2016 00:41 - CONCLUSION: 1. There is consolidation in the left lower lobe superior segment which maybe related to aspiration or contusion. 2. Minimal right upper lobe infiltrate. 3. Atherosclerosis. 4. Gynecomastia. 5. Remote fractures. Steven Camargo MD Cervical Spine CT 12/27/162348 Signed Impressions: Service Date/Time: Wednesday, December 28, 2016 00:35 - CONCLUSION: 1. Degenerative changes are identified without evidence for acute fracture. Steven Camargo MD Abdomen/Pelvis CT 12/27/162348 Signed Impressions: Service Date/Time: Wednesday, December 28, 2016 00:41 - CONCLUSION: 1. Moderate gastric distention. 2. Left lower lobe consolidation. 3. Dilated esophagus. 4. Calcified splenic granulomas. 5. Right inguinal hernia and fat-containing umbilical hernia. 6. Atherosclerosis. Steven Camargo MD Assessment and Plan Assessment and Plan Neuro/Psych: Acute delirium - hyponatremia? Depression/anxiety History of EtOH Seizure Head CT 12/27 reveal no acute intracranial findings EEG ordered Thiamine, folate, multivitamin daily for EtOH use Seizure precautions Monitor for DTs MRI brain ordered rule out CVA. If negative. Might require lumbar puncture EEG ordered Neurology consultation for altered mental status Holding olanzapine 10 mg by mouth nightly and mirtazapine 15 mg by mouth at night/home medications CV: History of hypertension Atherosclerotic vascular disease Currently on one half normal saline at 50 cc an hour. Currently not requiring vasopressors and/or antihypertensives Resp: Pneumonia likely aspiration Left rib fractures 2, 3, 4, 5, 8 with left scapula fracture CT thorax 12/27 revealed left scapula fracture, left ribs 2, 3, 458 with left lower lobe, right with no adenopathy in the hilar, paratracheal and subcarinal, para carinal regions Nasal cannula to maintain saturations greater than 92% Incentive spirometry while awake See ID for antibiotics GI: Gastric distention Dilated esophagus Splenic calcification Right inguinal hernia with umbilical hernia with fat CT abdomen/pelvis 12/27 revealed gastric distention, dilated esophagus, stomach consultation. Right inguinal hernia umbilical hernia fat. Advance diet as tolerated with speech therapy evaluate and treat Currently no indication for GI prophylaxis phi Colace for bowel regimen : Swan catheter has been placed for accurate I's and O's in a critically ill patient Endo: Sliding-scale insulin if indicated to maintain euglycemia Normal TSH. Elevated cortisol noted Renal: Creatinine currently within normal limits Monitor urine output Accurate I's and O's Heme: Leukocytosis Anemia/normocytic Monitor CBC daily. Follow trends ID: Likely aspiration pneumonia Monitor for infection Start on Zosyn day 1 and 1 dose vancomycin in ED 12/28 Blood cultures 2 ordered. Results pending. UA negative. MSK: Ankylosis C-spine with foraminal narrowing C3/C4 and anterolisthesis C7/S1 Right PIP fifth digit dislocation Left scapula fracture likely will PT/OT evaluate and treat FEN: Hypoosmolar hyponatremia Goal adjust sodium by 10 mEq/liter within 24 hours. This is not chronic. Last sodium was 135 approximately one month ago. EtOH/medication induced? Serial sodiums every 4 hours TSH, cortisol, uric acid, triglycerides, urine sodium and osm pending Access - Utilize peripheral IV. Central line if indicated Prophylaxis - GI -not indicated - DVT - SCD/holding pharmacological prophylaxis today if possible intervention with lumbar puncture Critical Care time 35 minutes Code Status Full code Discussed Condition With Patient. DIRECTOR TRANSLATION. Care plan discussed and all questions answered. Problem Qualifiers (1) Multiple fractures of ribs of left side: Qualified Code: S22.42XA - Closed fracture of multiple ribs of left side, initial encounter (2) Altered mental status: Qualified Code: R40.2420 - Odonnell coma scale total score 9-12, unspecified coma timing (3) Depression: Qualified Code: F32.9 - Depression, unspecified depression type (4) Scapula fracture: Qualified Code: S42.115A - Closed nondisplaced fracture of body of left scapula , initial encounter (5) Dislocation of PIP joint of finger: Qualified Code: S63.289A - Dislocation of proximal interphalangeal joint of finger, initial encounter Thee Palafox MD Dec 28, 2016 04:43
--- NOTE | 2016-12-28 08:18 | EKG ---
Date Performed: 12/28/2016 Time Performed: 02:10:33 PTAGE: 71 years EKG: Sinus rhythm BORDERLINE LEFT AXIS DEVIATION BORDERLINE ECG PREVIOUS TRACING : 12/09/2016 08.09 DOCTOR: Magan Wong Interpretating Date/Time 12/28/2016 08:16:29
--- NOTE | 2016-12-28 08:20 | EKG ---
Date Performed: 12/27/2016 Time Performed: 23:43:46 PTAGE: 71 years EKG: Sinus rhythm POSSIBLE RIGHT ATRIAL ENLARGEMENT BORDERLINE LEFT AXIS DEVIATION BORDERLINE ECG INTERPRETATION BASED ON A DEFAULT AGE OF 42 YEARS NO PREVIOUS TRACING DOCTOR: Magan Wong Interpretating Date/Time 12/28/2016 08:19:12
[2016-12-28] MEDS: ARTIFICIAL TEARS OPTH SOLN 15 ML BTL EACH EYE SCH ×3 (09:00→18:00)
[2016-12-28] MEDS: MULTIVITAMIN TAB PO SCH (09:00)
[2016-12-28] MEDS: DOCUSATE SODIUM 50 MG/SENNA 8.6 MG TAB PO SCH ×2 (09:00→21:00)
[2016-12-28] MEDS: FOLIC ACID 1 MG TAB PO SCH (09:00)
[2016-12-28] MEDS: SODIUM CHLOR 0.45% 1000 ML INJ 1,000 ML IV SCH (09:31)
[2016-12-28] MEDS: SODIUM CHLORIDE 0.9% FLUSH 10 ML FLUSH IV FLUSH SCH ×2 (09:31→21:24)
[2016-12-28] MEDS ORDERED: LORazepam 2 MG/ML VIAL IV PUSH SCH (09:45)
--- NOTE | 2016-12-28 13:13 | RADRPT ---
EXAM DATE/TIME: 12/28/2016 11:41 [facility] COMPARISON: No previous studies available for comparison. INDICATIONS : Altered mental status. MEDICAL HISTORY : Hypertension. SURGICAL HISTORY : Appendectomy. Inguinal hernia repair. Rt knee. ENCOUNTER: Subsequent ACUITY: 1 week PAIN SCORE: Nonresponsive. LOCATION: cranial TECHNIQUE: Multiplanar, multisequence MRI of the brain was performed without contrast. FINDINGS: CEREBRUM: The ventricles are normal for age. No evidence of midline shift, mass lesion, hemorrhage or acute in farction. No extraaxial fluid collections are seen. The pituitary gland and suprasellar cistern are normal in configuration.WHITE MATTER: Occasional benign appearing punctate white matter signal abnormalities POSTERIOR FOSSA: The cerebellum and brainstem are intact. The 4th ventricle is midline. The cerebellopontine angle is unremarkable. The cerebellar tonsils are normal in position. DIFFUSION IMAGING: No focal areas of restricted diffusion are seen. No evidence of acute infarction. EXTRACRANIAL: The visualized portions of the orbits and paranasal sinuses are unremarkable. CONCLUSION: No acute intracranial findings Christopher Mcnulty MD on December 28, 2016 at 13:09 Board Certified Radiologist. This report was verified electronically.
--- NOTE | 2016-12-28 13:51 | OTSOAPIP ---
TIME SESSION COMPLETED: 1336 TREATMENT TIME: 0 MINS. CHART REVIEWED. INTERDISCIPLINARY COMMUNICATION: RECEIVED ORDERS FROM DR BENSON SIMENTAL FOR SPLINT FOR SEVERE DISLOCATED RIGHT PIP JOINT. SPOKE WITH NURSE "KENDALL" REGARDING THE SEVERITY OF DISLOCATION RECOMMENDED AN ORTHOPEDIC CONSULT PRIOR TO SPLINT APPLICATION TO PREVENT FURTHER DIGIT INJURY. NURSING AGREED. PLAN: WILL AWAIT FURTHER INSTRUCTIONS Therapist: SYLVIA HERNANDEZ OTR/L Signature on file
[2016-12-28] MEDS: THIAMINE INJ 100 MG in SODIUM CHLORIDE 0.9% INJ 100 ML IV SCH (14:36)
--- NOTE | 2016-12-28 14:53 | RADRPT ---
EXAM DATE/TIME: 12/28/2016 14:11 [facility] COMPARISON: No previous studies available for comparison. INDICATIONS : Cerebrovascular accident. MEDICAL HISTORY : Arthritis. Seizures. Head trauma. Depression. Chronic anxiety. SURGICAL HISTORY : Appendectomy. Bilateral cataract extraction. Hernia repairs x3. ENCOUNTER: Initial ACUITY: 1 day PAIN SCORE: Nonresponsive. LOCATION: Bilateral neck PEAK SYSTOLIC VELOCITIES (cm/sec): ICA/CCA RATIO: Right: 0.8 Left: 1.1 ICA: Right: 75 Left: 108 CCA: Right: 96 Left: 96 ECA: Right: 91 Left: 80 VERTEBRAL: Right: 50 antegrade Left: 58 antegrade Elevated flow velocities and ICA/CCA ratios have been found to correlate with increased degrees of vessel stenosis, calculated as percentage of diameter relative to a normal segment of distal ICA/CCA FINDINGS: RIGHT CAROTID: There is no evidence for a hemodynamically significant carotid stenosis. Minimal int imal hyperplasia is present with scattered calcific plaque. LEFT CAROTID: There is no evidence for a hemodynamically significant carotid stenosis. Minimal inti mal hyperplasia is present with scattered calcific plaque. VERTEBRAL ARTERIES: Flow is antegrade in both vertebral arteries. MISCELLANEOUS: There are no ancillary masses or adenopathy. CONCLUSION: Negative examination for a hemodynamically significant carotid stenosis. Ramsye Fu MD FACR Ramsey Fu MD FACR on December 28, 2016 at 14:51 Board Certified Radiologist. This report was verified electronically.
--- NOTE | 2016-12-28 17:16 | ECHRPT ---
Indication: CVA/TIA CONCLUSIONS Normal left ventricular size. Wall thickness is normal. The left ventricular systolic function is preserved with estimated EF of 60%. Doppler parameters are consistent with impaired left ventricular relaxtion (grade 1 diastolic dysfun ction). The left atrial size is mildly dilated. . Mild mitral valve regurgitation. Normal estimated pulmonary pressures. . The inferior vena cava is dilated. There is less than 50% respiratory change in dimension of the inferior vena cava (abnormal). BP: 114 / 56 HR: 98 Rhythm: Sinus MEASUREMENTS (Male / Female) Normal Values Technical Quality:Fair 2D ECHO LV Diastolic Diameter PLAX 4.8 cm 4.2 - 5.9 / 3.9 - 5.3 cm LV Systolic Diameter PLAX 3.0 cm IVS Diastolic Thickness 0.9 cm 0.6 - 1.0 / 0.6 - 0.9 cm LVPW Diastolic Thickness 0.9 cm 0.6 - 1.0 / 0.6 - 0.9 cm LV Relative Wall Thickness 0.4 LVOT Diameter 2.3 cm Aortic Root Diameter 3.2 cm LA Systolic Diameter LX 2.8 cm 3.0 - 4.0 / 2.7 - 3.8 cm M-MODE AV Cusp Separation MM 2.5 cm DOPPLER AV Peak Velocity 106.0 cm/s AV Peak Gradient 4.5 mmHg AV Mean Gradient 2.0 mmHg AV Velocity Time Integral 19.7 cm LVOT Peak Velocity 66.9 cm/s LVOT Peak Gradient 1.8 mmHg LVOT Velocity Time Integral 12.8 cm LVOT Cardiac Index 2666.6 cm/minm AV Area Cont Eq vti 2.7 cm AV Area Cont Eq pk 2.6 cm Mitral E Point Velocity 78.0 cm/s Mitral A Point Velocity 99.7 cm/s Mitral E to A Ratio 0.8 LV E' Lateral Velocity 14.2 cm/s Mitral E to LV E' Lateral Ratio 5.5 LV E' Septal Velocity 8.8 cm/s Mitral E to LV E' Septal Ratio 8.9 TR Peak Velocity 243.0 cm/s TR Peak Gradient 23.6 mmHg PV Peak Velocity 58.7 cm/s PV Peak Gradient 1.4 mmHg FINDINGS LEFT VENTRICLE Normal left ventricular size. Wall thickness is normal. The left ventricular systolic function is normal with EF of 60%. Doppler parameters are consistent with impaired left ventricular relaxtion (grade 1 diastolic dysfun ction). RIGHT VENTRICLE Normal right ventricular size and systolic function. LEFT ATRIUM The left atrial size is mildly dilated. RIGHT ATRIUM The right atrial size is upper limits of normal. ATRIAL SEPTUM The interatrial septum not well visualized. AORTA The aortic root and proximal ascending aorta are normal in size on limited imaging. MITRAL VALVE Structurally normal mitral valve. Mild mitral valve regurgitation. AORTIC VALVE Trileaflet aortic valve. No aortic valve regurgitation. No aortic valve stenosis. TRICUSPID VALVE Structurally normal tricuspid valve. Normal estimated pulmonary pressures. PULMONARY VALVE The pulmonary valve is not well visualized. VESSELS The inferior vena cava is dilated. There is less than 50% respiratory change in dimension of the inferior vena cava (abnormal). Yris Avalos MD, FACC (Electronically Signed) Final Date:28 December 2016 17:14
--- NOTE | 2016-12-28 17:31 | MB ---
cc: DI ROCHA MD DATE OF CONSULTATION: 12/28/2016 REASON FOR CONSULTATION: "Admission with seizures," sodium 108 acute, negative head CT scan. MRI brain, EEG pending, assistance with neurological assessment. HISTORY OF PRESENT ILLNESS: Mr. Newsome is a 71-year-old male who presented to the [facility] emergency room where he was found on the floor by his roommate. The patient has history of alcohol abuse and seizure disorder, glucose level in the emergency room was 113. No head trauma other than 1 cm scalp laceration on the right occipital area. Time he was found to be hyponatremic. He has a sodium level of 108. The head CT scan done without contrast in the emergency room revealed no acute disease. He was admitted in the ICU. As the patient is a poor historian, the history is obtained from medical records. PMH of depression, anxiety and hypertension. Toxicology screen was negative for alcohol. CT of the chest revealed left lower lobe pneumonia, right upper lobe pneumonia. Left scapular fracture, left rib, 2, 3, 4, 5, 8, nondisplaced fracture. C-spine showed foraminal narrowing and ankylosis. The fracture is of the left scapula, left second, third, fourth and fifth ribs, were non-acute. Labs revealed a low sodium of 108, leukocytosis of 18,000. REVIEW OF SYSTEMS Unable to obtain but per medical records a 12-point review of systems is negative except for what is mentioned in the HPI. PAST MEDICAL HISTORY Depression, anxiety, hypertension, alcoholism. PAST SURGICAL HISTORY Cataract, appendectomy, left total arthroplasty, right inguinal hernia repair, left inguinal hernia repair. ALLERGIES No known allergies. MEDICATIONS Mirtazapine. FAMILY HISTORY: Noncontributory. SOCIAL HISTORY As per review, 12 to 18 beers a day, smokes cigarettes. PHYSICAL EXAMINATION: General: Sleepy but arousable, poor historian in mild distress and confused. HEENT: Atraumatic, normocephalic, equal intact hearing. Intact vision. Neck: Midline. No signs of meningeal irritation. Cardiovascular: Regular rate. Respiratory: Clear to auscultation. Gastrointestinal: Soft abdomen not tender. Musculoskeletal: No peripheral edema, dislocated right PIP. Extremities: Moves all extremities, restrained. Neurologic: Awake, alert, oriented to person, place, [facility], not to time [address]. Questionable right facial palsy with poor closure of the right angle of the mouth, mild dysarthria. No nystagmus. Pupils equal and reacting to light. LABORATORY DATA White blood cells 18.5, hemoglobin 12.9, MCV 9.8, sed rate 5. Initially sodium was 108, today it is 126. Chloride 74 initially, BUN 11, creatinine 0.58, calcium 7.9, AST 83, ALT 32, alkaline phosphatase 89, total CK 3294.Triglyceride 31, TSH normal. INR 1.1. UDS is reported as negative. DIAGNOSTIC IMAGING - Head CT scan with no acute abnormality. - Carotid ultrasound with no significant hemodynamic carotid stenosis. - Brain MRI without contrast with no acute intracranial findings and with benign -appearing punctate white matter signal abnormalities. - Chest CT scan: There is consolidation superior segment left lower lobe may be aspiration or pulmonary contusion. Minimal right upper lobe infiltrate and nonacute left scapular fracture, nonacute left second, third, fourth, fifth through eighth rib fracture and degenerative changes of the spine, and gynecomastia. DIAGNOSTIC IMPRESSION 1. Encephalopathy. 2. Possible etiology metabolic/severe hyponatremia vs status post ictal state, possible seizures, alcohol related seizures. 3. Rhabdomyolysis. 4. Hypertension. 5. Pneumonia. 6. Multiple rib fractures. 7. Scapula fracture. PLAN Neuro checks q. one hourly. CIWA protocol. Hold all antidepressants and antipsychotics. Replenish sodium slowly to avoid central pontine neurolysis. Questionable SIADH Follow up trending white blood cells. DVT prophylaxis. Seizure prophylaxis. Thank you for asking me to participate in the care of your patient. MD ESTEPHANIA Delgadillo/IVONE /3:51 PM /4:33 PM JAYSHREE
--- NOTE | 2016-12-28 22:09 | MG ---
cc: BETY HUNTER M.D., LOUIS M. MD Sex: M REFERRING PHYSICIAN: Dr. Palafox. INDICATIONS: An EEG was obtained on this 71 year-old patient with a history of decreased responsiveness. DESCRIPTION: The EEG is showing a lot of 6 to 7 per second activity centrally and posteriorly. There are beta rhythms diffusely and artifact frontally. The patient later on is obviously drowsy but there is some apparent awake and asleep throughout. There is lot of artifact when the patient appears awake. Photic stimulation disclosed no significant change. Throughout the study body movement is described with no EEG change. INTERPRETATION Abnormal EEG because of mild slowing suggesting a mild to moderate diffuse disturbance of cerebral function. No epileptiform features present. Bety Hunter MD [facility] /9:43 PM /10:03 PM
[2016-12-29] VITALS (21 sets, daily range): BP systolic 104–128; BP diastolic 51–64; PULSE 68–86; RESP 16–31; TEMP 97.8–98.8; O2SAT 91–100
[2016-12-29 01:20] LABS: CKMB 7.7 NG/ML (0.5-3.6)
[2016-12-29] MEDS: CHLORHEXIDINE GLUCONATE 2 % 1 PACK (2 CLOTHS) TOP SCH (02:36)
[2016-12-29] MEDS: PIPERACIL-TAZO 4.5 GM PREMIX 100 ML IV SCH ×4 (02:36→20:41)
[2016-12-29] MEDS: SODIUM CHLOR 0.45% 1000 ML INJ 1,000 ML IV SCH ×3 (02:37→20:42)
[2016-12-29 04:32] LABS: AUTOMATED NEUTROPHIL # 7.8 TH/MM3 (1.8-7.7); BASOPHIL % 0.2 % (0.0-2.0); EOSINOPHIL % 0.1 % (0.0-4.0); HEMATOCRIT 33.4 % (39.0-51.0); HEMO FLAGS DIFF FINAL; LYMPH % 9.7 % (9.0-44.0); LYMPHOCYTE # 0.9 TH/MM3 (1.0-4.8); MEAN CORPUSCULAR HEMOGLOBIN 31.6 PG (27.0-34.0); MEAN CORPUSCULAR HGB CONC 35.9 % (32.0-36.0); MONO % 9.1 % (0.0-8.0); NEUT % 80.9 % (16.0-70.0); PLATELET COUNT 178 TH/MM3 (150-450); RED BLOOD COUNT 3.79 MIL/MM3 (4.50-5.90); RED CELL DISTRIBUTION WIDTH 12.6 % (11.6-17.2); WHITE BLOOD COUNT 9.6 TH/MM3 (4.0-11.0)
[2016-12-29 04:49] LABS: APTT (PATIENT) 27.5 SEC (24.3-30.1); INTERNATIONAL NORMALIZED RATIO 1.1 RATIO; PROTHROMBIN TIME - PATIENT 12.3 SEC (9.8-11.6)
[2016-12-29 05:07] LABS: ALKALINE PHOSPHATASE 69 U/L (45-117); ALT (GPT) 49 U/L (12-78); ANION GAP 10 MEQ/L (5-15); AST (GOT) 153 U/L (15-37); BICARBONATE 24.3 MEQ/L (21.0-32.0); BLOOD UREA NITROGEN 7 MG/DL (7-18); CHLORIDE 96 MEQ/L (98-107); GLOMERULAR FILTRATION RATE 173 ML/MIN (>89); MAGNESIUM 2.1 MG/DL (1.5-2.5); SODIUM (NA) 130 MEQ/L (136-145); TOTAL BILIRUBIN ADULT 1.4 MG/DL (0.2-1.0)
[2016-12-29 05:12] LABS: POTASSIUM 2.8 MEQ/L (3.5-5.1)
[2016-12-29] MEDS ORDERED: ICU - D/C ICU ELECTROLYTE ORDERS PRN (06:15)
[2016-12-29] MEDS ORDERED: ICU - SODIUM PHOSPHATE 30 MMOL/NS 250 ML IV PRN ×2 (06:15)
[2016-12-29] MEDS ORDERED: POTASSIUM CHLORIDE 25 MEQ EFFERVESCENT TAB PO PRN (06:15)
[2016-12-29] MEDS ORDERED: ICU - POTASSIUM PHOSPHATE MONOBASIC 500 MG TAB PO PRN (06:15)
[2016-12-29] MEDS ORDERED: ICU - MAGNESIUM SULFATE 2 GM/NS 100 ML IV PRN ×2 (06:15)
[2016-12-29] MEDS ORDERED: ICU - MAGNESIUM SULFATE 4 GM/NS 100 ML IV PRN ×2 (06:15)
[2016-12-29] MEDS ORDERED: ICU - CALL ORDERING PHYSICIAN PRN (06:15)
[2016-12-29] MEDS ORDERED: ICU - MAGNESIUM OXIDE 400 MG TAB PO PRN (06:15)
[2016-12-29] MEDS ORDERED: ICU - POTASSIUM CHLORIDE/AQUEOUS SOLN 40 MEQ/100 ML IVPB IV PRN (06:15)
[2016-12-29] MEDS: ICU - POTASSIUM CHLORIDE/AQUEOUS SOLN 20 MEQ/100 ML IVPB IV PRN ×2 (06:37→08:48)
[2016-12-29] MEDS: ARTIFICIAL TEARS OPTH SOLN 15 ML BTL EACH EYE SCH ×3 (08:48→14:33)
[2016-12-29] MEDS: FOLIC ACID 1 MG TAB PO SCH (08:48)
[2016-12-29] MEDS: DOCUSATE SODIUM 50 MG/SENNA 8.6 MG TAB PO SCH ×2 (08:48→20:40)
[2016-12-29] MEDS: SODIUM CHLORIDE 0.9% FLUSH 10 ML FLUSH IV FLUSH SCH ×2 (08:48→21:00)
[2016-12-29] MEDS: MULTIVITAMIN TAB PO SCH (08:48)
[2016-12-29] MEDS: THIAMINE INJ 100 MG in SODIUM CHLORIDE 0.9% INJ 100 ML IV SCH (09:27)
[2016-12-29] MEDS: ICU - POTASSIUM PHOSPHATE 30 MMOL/NS 250 ML IV PRN ×2 (09:27)
--- NOTE | 2016-12-29 10:06 | HHI.CCPN ---
Subjective Remarks/Hospital Course This is a 71-year-old male. Date of admission 12/28/2016. Past medical history includes depression/anxiety and hypertension. He has a history of alcoholism with unknown current usage. Toxicology screen negative at this facility. Patient presents to [facility] with altered mental status. According to records, patient was found by her roommate confused for unknown duration of time. CT head revealed no acute intracranial findings. CT thorax revealed left lower lobe pneumonia, right upper lobe pneumonia with calcified lymph nodes in the hilar/subcarinal and pericarinal regions and paratracheal regions. Also, left scapular fracture and left ribs 2, 3, 4, 5, [address] C-spine showed foraminal narrowing/ankylosis. CT abdomen/pelvis revealed gastric distention, dilated esophagus, splenic calcifications, right inguinal hernia with fat and umbilical hernia and atherosclerotic vascular disease. Pertinent laboratories revealed a sodium of 108. Leukocytosis of 18,000. ED physician gave patient 3 L normal saline wide open. Repeat sodium for sodium was 1:15. We are asked to admit. SUBJECTIVE: 12/29: More information--- patient having panic attacks and he drinks copious amounts of water and takes medications not as prescribed. Probably source of encephalopathy. Currently oriented to Person and place only. Not time. Objective Vital Signs Date Time Temp Pulse Resp B/P Pulse Ox O2 Delivery O2 Flow Rate FiO2 12/29/16 08:00 98.7 74 20 118/56 100 12/28/16 22:22 Nasal Cannula 2.00 Intake and Output 12/28/16 12/28/16 12/29/16 08:00 16:00 00:00 Intake Total 3755 ml 430 ml Output Total 4075 ml 2450 ml 500 ml Balance -320 ml -2450 ml -70 ml Result Diagram: 12/29/16 0428 12/29/16 0428 Other Results Microbiology Date/Time Procedure Status Source Growth 12/28/16 01:20 Aerobic Blood Culture Received Blood Peripheral Pending 12/28/16 01:20 Anaerobic Blood Culture Received Blood Peripheral Pending Imaging Last Impressions Finger X-Ray 12/28/16 0129 Signed Impressions: Service Date/Time: Wednesday, December 28, 2016 01:40 - CONCLUSION: Fifth PIP joint dislocation. Steven Camargo MD Carotid Artery Ultrasound 12/28/16 0000 Signed Impressions: Service Date/Time: Wednesday, December 28, 2016 14:11 - CONCLUSION: Negative examination for a hemodynamically significant carotid stenosis. Ramsey Fu MD Brain MRI 12/28/16 0000 Signed Impressions: Service Date/Time: Wednesday, December 28, 2016 11:41 - CONCLUSION: No acute intracranial findings Christopher Mcnulty MD Head CT 12/27/162348 Signed Impressions: Service Date/Time: Wednesday, December 28, 2016 00:35 - CONCLUSION: No acute disease. Steven Camargo MD Chest CT 12/27/162348 Signed Impressions: Service Date/Time: Wednesday, December 28, 2016 00:41 - CONCLUSION: 1. There is consolidation in the left lower lobe superior segment which maybe related to aspiration or contusion. 2. Minimal right upper lobe infiltrate. 3. Atherosclerosis. 4. Gynecomastia. 5. Remote fractures. Steven Camargo MD Cervical Spine CT 12/27/162348 Signed Impressions: Service Date/Time: Wednesday, December 28, 2016 00:35 - CONCLUSION: 1. Degenerative changes are identified without evidence for acute fracture. Steven Camargo MD Abdomen/Pelvis CT 12/27/162348 Signed Impressions: Service Date/Time: Wednesday, December 28, 2016 00:41 - CONCLUSION: 1. Moderate gastric distention. 2. Left lower lobe consolidation. 3. Dilated esophagus. 4. Calcified splenic granulomas. 5. Right inguinal hernia and fat-containing umbilical hernia. 6. Atherosclerosis. Steven Camargo MD Objective Remarks GENERAL: 71-year-old male, critically ill currently resting in bed in no acute distress SKIN: Warm and dry. Well perfused HEAD: Atraumatic. Normocephalic. EYES: Pupils equal and round. About 2 mm bilaterally and reactive. No scleral icterus. No injection or drainage. ENT: No nasal bleeding or discharge. Mucous membranes pink and moist. NECK: Trachea midline. No JVD. CARDIOVASCULAR: Regular rate and rhythm. S1, S2 without murmur RESPIRATORY: Clear to auscultation. Breath sounds equal bilaterally. GASTROINTESTINAL: Abdomen soft, non-tender, nondistended. Hepatic and splenic margins not palpable. MUSCULOSKELETAL: Extremities without significant peripheral edema. Dislocated proximal right PIP. No obvious deformities. NEUROLOGICAL: Awake and alert to person and place only. Attempting to get out of bed. Moves all 4 extremities spontaneously. No obvious motor deficits.. Speech improved. A/P Assessment and Plan Neuro/Psych: Acute delirium - hyponatremia? Depression/anxiety History of EtOH Seizure Head CT 12/27 reveal no acute intracranial findings MRI brain 12/28 negative EEG mild to moderate encephalopathy. Her activity Thiamine, folate, multivitamin daily for EtOH use and quit June 2016 Seizure precautions Goes to [facility] Neurology consultation for altered mental status appreciated. Sister requesting psychiatric evaluation prior to discharge when stable regarding panic attacks Holding olanzapine 10 mg by mouth nightly and mirtazapine 15 mg by mouth at night/home medications CV: History of hypertension Atherosclerotic vascular disease Grade 1 chronic diastolic dysfunction Currently on one half normal saline at 100 cc an hour. Currently not requiring vasopressors and/or antihypertensives Echocardiogram 12/28 revealed EF 60%. Grade 1 diastolic discharge. Left atrium dilated. Mild MR. Resp: Pneumonia likely aspiration Left rib fractures 2, 3, 4, 5, 8 with left scapula fracture CT thorax 12/27 revealed left scapula fracture, left ribs 2, 3, 458 with left lower lobe, right with no adenopathy in the hilar, paratracheal and subcarinal, para carinal regions Nasal cannula to maintain saturations greater than 92% Incentive spirometry while awake See ID for antibiotics GI: Gastric distention Dilated esophagus Splenic calcification Right inguinal hernia with umbilical hernia with fat CT abdomen/pelvis 12/27 revealed gastric distention, dilated esophagus, stomach consultation. Right inguinal hernia umbilical hernia fat. Advance diet as toleratedheart healthy diet Currently no indication for GI prophylaxis phi Colace for bowel regimen : Swan catheter has been placed for accurate I's and O's in a critically ill patient Endo: Mild rhabdo Sliding-scale insulin if indicated to maintain euglycemia Normal TSH. Elevated cortisol noted Recheck LFT/creatinine in a.m. Along with CPK Renal: Creatinine currently within normal limits Monitor urine output Accurate I's and O's Heme: Anemia/normocytic Monitor CBC daily. Follow trends ID: Likely aspiration pneumonia Monitor for infection Start on Zosyn day 2 and 1 dose vancomycin in ED 12/28 Blood cultures 2 ordered. Results pending. UA negative. MSK: Ankylosis C-spine with foraminal narrowing C3/C4 and anterolisthesis C7/S1 Right PIP fifth digit dislocation - hand surgeon consulted Left scapula fracture PT/OT evaluate and treat FEN: Hypoosmolar hyponatremia resolving Hypokalemia Hypophosphatemia Likely secondary to copious water intake. This is acute as sodium was normal 1 month ago. At low risk for pontine myelolysis 60 milliequivalents KCl, 30 mmol K-Phos. Recheck at 1800 potassium Access - Utilize peripheral IV. Central line if indicated Prophylaxis - GI -not indicated - DVT - SCD/heparin subcutaneous Level II Thee Palafox MD Dec 29, 2016 10:06
[2016-12-29] MEDS ORDERED: POTASSIUM CHLORIDE 10 MEQ CONTROLLED RELEASE TAB PO ONE (11:00)
[2016-12-29] MEDS ORDERED: POTASSIUM CHLORIDE 20 MEQ CONTROLLED RELEASE TAB PO ONE (11:45)
--- NOTE | 2016-12-29 13:55 | PD.CONS ---
History of Present Illness Service Hand Surgery Consult Requested By Reason for Consult Dislocation, right fifth finger. Primary Care Physician Unknown Diagnoses: History of Present Illness This is a 71 year old male who was admitted to the hospital on 12/28/16 for toxic encephalopathy, sepsis, and hyponatremia. He was brought to the ER after his friend found him unconscious for an unknown period of time. He has a history of alcoholism and seizure disorder. A dislocation of the right fifth PIP joint was discovered. The patient was unable to describe how it happened, but assumes that he fell. Hand surgery was asked to consult for further evaluation and treatment. Review of Systems ROS Limitations: Altered Mental Status Except as stated in HPI: all other systems reviewed are Neg Past Family Social History Allergies: Coded Allergies: No Known Allergies (Unverified , 11/11/16) Past Medical History Depression, anxiety, HTN, alcoholism Past Surgical History Cataracts, appendectomy, left total hip, right inguinal hernia repair, left inguinal hernia repair Active Ordered Medications Current Medications Medications (Trade) Dose Ordered Sig/Shabana Route Start Time Stop Time Status Last Admin IV Flush 2 ml 2 ml UNSCH PRN IV FLUSH 12/28/16 00:00 (Thiamine Inj/NS Inj) 101 ml @ 101 mls/hr DAILY IV 12/28/16 09:00 12/29/16 09:27 (Folate) 1 mg DAILY PO 12/28/16 09:00 12/29/16 08:48 (Theragran) 1 tab DAILY PO 12/28/16 09:00 12/29/16 08:48 (NS Flush) 2 ml UNSCH PRN IV FLUSH 12/28/16 02:00 12/29/16 08:48 (NS Flush) 2 ml BID IV FLUSH 12/28/16 09:00 12/29/16 08:48 (Tylenol) 650 mg Q6H PRN PO 12/28/16 02:00 (Tears Naturale Opth Soln) 1 drop TID EACH EYE 12/28/16 09:00 12/28/16 18:00 (Zofran Inj) 4 mg Q6H PRN IV 12/28/16 02:00 Miscellaneous Information 1 Q361D XX 12/28/16 02:00 (Chlorhexidine 2% Cloth) 3 pack Taper DAILY@04 TOP 12/28/16 04:00 12/24/17 03:59 12/29/16 02:36 (Chlorhexidine 2% Cloth) 3 pack UNSCH PRN TOP 12/28/16 02:00 (Nemo-Colace) 1 tab BID PO 12/28/16 09:00 12/29/16 08:48 (Milk Of Magnailyn Liq) 30 ml Q12H PRN PO 12/28/16 02:00 (Senokot) 17.2 mg Q12H PRN PO 12/28/16 02:00 (Dulcolax Supp) 10 mg DAILY PRN RECTAL 12/28/16 02:00 Lactulose 30 ml 30 ml DAILY PRN PO 12/28/16 02:00 Piperacillin Sod/ Tazobactam Sod 100 ml @ 200 mls/hr Q6H IV 12/28/16 02:00 12/29/16 08:49 (1/2 NS 1000 ml Inj) 1,000 ml @ 100 mls/hr Q10H IV 12/28/16 06:30 12/29/16 02:37 Miscellaneous Information D/C ICU ELECTROLYTE ORDERS... UNSCH PRN .XX 12/29/16 06:15 Miscellaneous Information ICU - CALL ORDERING PHYSIC... UNSCH PRN .XX 12/29/16 06:15 (KCl 40 Meq Premix Inj) 100 ml @ 25 mls/hr UNSCH PRN IV 12/29/16 06:15 Potassium Bicarb/ Potassium Chloride 50 meq 50 meq UNSCH PRN PO 12/29/16 06:15 Potassium Chloride 100 ml @ 50 mls/hr UNSCH PRN IV 12/29/16 06:15 12/29/16 08:48 Magnesium Sulfate 4 gm/Sodium Chloride 108 ml @ 54 mls/hr UNSCH PRN IV 12/29/16 06:15 (Magnesium Sulfate Inj/NS Inj) 104 ml @ 52 mls/hr UNSCH PRN IV 12/29/16 06:15 Magnesium Oxide 800 mg 800 mg UNSCH PRN PO 12/29/16 06:15 (Sodium Phosphate Inj/NS 250 ml Inj) 260 ml @ 43.333 mls/ hr UNSCH PRN IV 12/29/16 06:15 Potassium Phosphate 2000 mg 2,000 mg UNSCH PRN PO 12/29/16 06:15 (Potassium Phosphate Inj/NS 250 ml Inj) 260 ml @ 43.333 mls/ hr UNSCH PRN IV 12/29/16 06:15 12/29/16 09:27 Family History Father is a physician with hx of vascular disease. Mother of lung cancer. Social History History of drinking 12-18 beers per day. Unsure of current alcohol intake status. Tobacco user. Physical Exam Vital Signs Vital Signs Date Time Temp Pulse Resp B/P Pulse Ox O2 Delivery O2 Flow Rate FiO2 12/29/16 12:00 81 12/29/16 12:00 98.4 81 19 104/55 12/29/16 11:00 84 12/29/16 10:00 73 12/29/16 09:00 77 12/29/16 08:00 98.7 74 20 118/56 100 12/29/16 08:00 74 12/29/16 07:00 74 17 116/63 12/29/16 07:00 74 12/29/16 06:00 86 12/29/16 04:00 98.4 72 18 115/56 96 12/29/16 04:00 72 12/29/16 02:00 68 12/29/16 00:00 69 12/29/16 00:00 98.3 69 16 114/64 100 12/28/16 22:22 96 Nasal Cannula 2.00 12/28/16 22:00 76 12/28/16 20:00 78 12/28/16 20:00 98.8 78 18 104/65 100 12/28/16 18:00 78 12/28/16 17:00 77 19 108/53 100 12/28/16 16:00 99.1 77 17 106/57 100 12/28/16 16:00 77 12/28/16 15:00 76 20 110/59 100 12/28/16 14:00 80 12/28/16 14:00 80 23 112/55 100 Physical Exam GENERAL: This is a well-nourished, well-developed patient, in no apparent distress. SKIN: No rashes, ecchymoses or lesions. HEAD: Atraumatic. Normocephalic. EYES: Pupils equal round and reactive. Extraocular motions intact. No scleral icterus. No injection or drainage. ENT: Nose without bleeding, purulent drainage. Airway patent. NECK: Trachea midline. CARDIOVASCULAR: Regular rate and rhythm without murmurs, gallops, or rubs. RESPIRATORY: Clear to auscultation. Breath sounds equal bilaterally. No wheezes , rales, or rhonchi. MUSCULOSKELETAL:On exam of the right hand, there is swelling and ecchymosis to the fourth and fifth fingers. Dislocation of the fifth PIP joint was palpable. NEUROLOGICAL: Awake and alert. Normal speech. Laboratory Laboratory Tests Test 12/28/16 12/29/16 12/29/16 19:20 00:17 04:28 Sodium Level 129 130 130 C-Reactive Protein 10.00 Total Creatine Kinase 7740 Creatine Kinase MB 7.7 Creatine Kinase MB % 0.1 White Blood Count 9.6 Red Blood Count 3.79 Hemoglobin 12.0 Hematocrit 33.4 Mean Corpuscular Volume 88.0 Mean Corpuscular Hemoglobin 31.6 Mean Corpuscular Hemoglobin 35.9 Concent Red Cell Distribution Width 12.6 Platelet Count 178 Mean Platelet Volume 6.5 Neutrophils (%) (Auto) 80.9 Lymphocytes (%) (Auto) 9.7 Monocytes (%) (Auto) 9.1 Eosinophils (%) (Auto) 0.1 Basophils (%) (Auto) 0.2 Neutrophils # (Auto) 7.8 Lymphocytes # (Auto) 0.9 Monocytes # (Auto) 0.9 Eosinophils # (Auto) 0.0 Basophils # (Auto) 0.0 CBC Comment DIFF FINAL Differential Comment Prothrombin Time 12.3 Prothromb Time International 1.1 Ratio Activated Partial 27.5 Thromboplast Time Potassium Level 2.8 Chloride Level 96 Carbon Dioxide Level 24.3 Anion Gap 10 Blood Urea Nitrogen 7 Creatinine 0.48 Estimat Glomerular Filtration 173 Rate Random Glucose 68 Lactic Acid Level 0.9 Calcium Level 8.2 Phosphorus Level 1.9 Magnesium Level 2.1 Total Bilirubin 1.4 Aspartate Amino Transf 153 (AST/SGOT) Alanine Aminotransferase 49 (ALT/SGPT) Alkaline Phosphatase 69 Total Protein 6.2 Albumin 3.2 Date/Time Procedure Status Source Growth 12/28/16 01:20 Aerobic Blood Culture - Preliminary Resulted Blood Peripheral NO GROWTH IN 1 DAY 12/28/16 01:20 Anaerobic Blood Culture - Preliminary Resulted Blood Peripheral NO GROWTH IN 1 DAY Result Diagram: 12/29/16 0428 12/29/16 0428 Imaging Last Impressions Finger X-Ray 12/28/16 0129 Signed Impressions: Service Date/Time: Wednesday, December 28, 2016 01:40 - CONCLUSION: Fifth PIP joint dislocation. Steven Camargo MD Carotid Artery Ultrasound 12/28/16 0000 Signed Impressions: Service Date/Time: Wednesday, December 28, 2016 14:11 - CONCLUSION: Negative examination for a hemodynamically significant carotid stenosis. Ramsey Fu MD Brain MRI 12/28/16 0000 Signed Impressions: Service Date/Time: Wednesday, December 28, 2016 11:41 - CONCLUSION: No acute intracranial findings Christopher Mcnulty MD Head CT 12/27/162348 Signed Impressions: Service Date/Time: Wednesday, December 28, 2016 00:35 - CONCLUSION: No acute disease. Steven Camargo MD Chest CT 12/27/162348 Signed Impressions: Service Date/Time: Wednesday, December 28, 2016 00:41 - CONCLUSION: 1. There is consolidation in the left lower lobe superior segment which maybe related to aspiration or contusion. 2. Minimal right upper lobe infiltrate. 3. Atherosclerosis. 4. Gynecomastia. 5. Remote fractures. Steven Camargo MD Cervical Spine CT 12/27/162348 Signed Impressions: Service Date/Time: Wednesday, December 28, 2016 00:35 - CONCLUSION: 1. Degenerative changes are identified without evidence for acute fracture. Steven Camargo MD Abdomen/Pelvis CT 12/27/162348 Signed Impressions: Service Date/Time: Wednesday, December 28, 2016 00:41 - CONCLUSION: 1. Moderate gastric distention. 2. Left lower lobe consolidation. 3. Dilated esophagus. 4. Calcified splenic granulomas. 5. Right inguinal hernia and fat-containing umbilical hernia. 6. Atherosclerosis. Steven Camargo MD Assessment and Plan Problem List: (1) Dislocation of PIP joint of finger Status: Acute Plan: We discussed the injury with the patient and RN. The recommendation is for a reduction of the dislocation at the bedside. The procedure is discussed and the patient made aware of risks, complications and postreduction splinting. He signed a consent. The procedure was performed, and the patient was left lying comfortably in bed. Procedure: Under sterile conditions a digital block, consisting of 2% lidocaine , was administered to the right fifth finger. Once adequate anesthesia had been achieved, manual manipulation was used to reduce the dislocation. The patient was able to make a full fist. A well padded, well molded splint was applied and secured loosely with betzy wrap. The patient and RN were advised that this should be kept in place for 3 weeks. Discharge Planning Patient is cleared for discharge from hand surgery standpoint. He should keep the splint dry and in place and follow up in the office upon discharge. Physician Attestation The exam, history, and the medical decision-making described in the above note were completed with the assistance of the mid-level provider. I reviewed and agree with the findings presented. I attest that I had a [id number] encounter with the patient on the same day, and personally performed and documented my assessment and findings in the medical record. Noelle Ureña M.D. Problem Qualifiers (1) Dislocation of PIP joint of finger: Qualified Code: S63.289A - Dislocation of proximal interphalangeal joint of finger, initial encounter Yomaira Gamble Dec 29, 2016 13:54
--- NOTE | 2016-12-29 14:36 | RADRPT ---
EXAM DATE/TIME: 12/29/2016 13:53 [facility] COMPARISON: FINGER RIGHT 5TH DIGIT (SAP2ESJ), December 28, 2016, 1:40. INDICATIONS : Right fifth digit post reduction of PIP dislocation. MEDICAL HISTORY : Arthritis. Seizures. Head trauma. Depression. Chronic anxiety. SURGICAL HISTORY : Appendectomy. Bilateral cataract extraction. Hernia repairs x3. ENCOUNTER: Subsequent ACUITY: 1 day PAIN SCORE: 3/10 LOCATION: Right hand FINDINGS: Three view examination of the right hand demonstrates post reduction of the previously noted joint di slocation of the fifth PIP joint. There is now good alignment at the fifth PIP joint. The bony struct ures are grossly intact. There is material overlying the fingers which obscured some of the bony deta il.. CONCLUSION: Status post reduction of the previously noted joint dislocation of the fifth PIP joint. Matthias Mackey MD on December 29, 2016 at 14:33 Board Certified Radiologist. This report was verified electronically.
[2016-12-29] MEDS: ACETAMINOPHEN 325 MG TAB PO PRN (20:41)
[2016-12-29 21:22] LABS: POTASSIUM 3.2 MEQ/L (3.5-5.1)
[2016-12-30] VITALS (14 sets, daily range): BP systolic 100–136; BP diastolic 58–72; PULSE 64–80; RESP 16–32; TEMP 98.4–99; O2SAT 93–99
[2016-12-30] MEDS: CHLORHEXIDINE GLUCONATE 2 % 1 PACK (2 CLOTHS) TOP SCH (02:00)
[2016-12-30] MEDS: PIPERACIL-TAZO 4.5 GM PREMIX 100 ML IV SCH ×4 (02:15→22:48)
[2016-12-30] MEDS: ICU - POTASSIUM PHOSPHATE 30 MMOL/NS 250 ML IV PRN ×2 (02:23)
[2016-12-30] MEDS: ACETAMINOPHEN 325 MG TAB PO PRN ×2 (03:15→22:48)
[2016-12-30] MEDS: SODIUM CHLOR 0.45% 1000 ML INJ 1,000 ML IV SCH ×2 (07:45→22:50)
[2016-12-30 08:30] LABS: BASOPHIL % 0.4 % (0.0-2.0); EOSINOPHIL # 0.1 TH/MM3 (0-0.4); EOSINOPHIL % 1.3 % (0.0-4.0); HEMATOCRIT 33.2 % (39.0-51.0); HEMO FLAGS DIFF FINAL; LYMPH % 12.8 % (9.0-44.0); LYMPHOCYTE # 1.2 TH/MM3 (1.0-4.8); MEAN CELL VOLUME 88.2 FL (80.0-100.0); MEAN CORPUSCULAR HEMOGLOBIN 31.6 PG (27.0-34.0); MEAN CORPUSCULAR HGB CONC 35.9 % (32.0-36.0); MONO % 8.2 % (0.0-8.0); NEUT % 77.3 % (16.0-70.0); PLATELET COUNT 174 TH/MM3 (150-450); RED BLOOD COUNT 3.77 MIL/MM3 (4.50-5.90); RED CELL DISTRIBUTION WIDTH 12.4 % (11.6-17.2); WHITE BLOOD COUNT 9.1 TH/MM3 (4.0-11.0)
[2016-12-30] MEDS: SODIUM CHLORIDE 0.9% FLUSH 10 ML FLUSH IV FLUSH SCH ×2 (08:30→21:00)
[2016-12-30] MEDS: THIAMINE INJ 100 MG in SODIUM CHLORIDE 0.9% INJ 100 ML IV SCH (08:30)
[2016-12-30] MEDS: MULTIVITAMIN TAB PO SCH (08:31)
[2016-12-30] MEDS: FOLIC ACID 1 MG TAB PO SCH (08:31)
[2016-12-30] MEDS: DOCUSATE SODIUM 50 MG/SENNA 8.6 MG TAB PO SCH ×2 (08:31→22:49)
[2016-12-30 08:57] LABS: ANION GAP 8 MEQ/L (5-15); AST (GOT) 137 U/L (15-37); BICARBONATE 25.7 MEQ/L (21.0-32.0); BLOOD UREA NITROGEN 5 MG/DL (7-18); CHLORIDE 93 MEQ/L (98-107); GLOMERULAR FILTRATION RATE 207 ML/MIN (>89); POTASSIUM 3.4 MEQ/L (3.5-5.1); SODIUM (NA) 127 MEQ/L (136-145)
[2016-12-30] MEDS: ARTIFICIAL TEARS OPTH SOLN 15 ML BTL EACH EYE SCH ×3 (09:00→18:42)
[2016-12-30 09:13] LABS: ALKALINE PHOSPHATASE 67 U/L (45-117); ALT (GPT) 51 U/L (12-78); CREATINE KINASE 6232 U/L (39-308); TOTAL BILIRUBIN ADULT 1.1 MG/DL (0.2-1.0)
[2016-12-30 09:35] LABS: CKMB 1.9 NG/ML (0.5-3.6)
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
[2016-12-30 20:51] LABS: BICARBONATE 26.3 MEQ/L (21.0-32.0); POTASSIUM 3.8 MEQ/L (3.5-5.1)
[2016-12-30 21:14] LABS: MEAN CORPUSCULAR HGB CONC 36.3 % (32.0-36.0)
[2016-12-30] MEDS: OLANZapine 10 MG TAB PO SCH (22:48)
[2016-12-30] MEDS: MIRTAZAPINE 15 MG TAB PO SCH (22:49)
[2016-12-31] VITALS (8 sets, daily range): BP systolic 113–145; BP diastolic 55–80; PULSE 65–89; RESP 16–19; TEMP 97.7–98.9; O2SAT 97–99
[2016-12-31] MEDS: PIPERACIL-TAZO 4.5 GM PREMIX 100 ML IV SCH ×4 (02:00→20:34)
[2016-12-31] MEDS: CHLORHEXIDINE GLUCONATE 2 % 1 PACK (2 CLOTHS) TOP SCH (03:31)
[2016-12-31] MEDS: SODIUM CHLOR 0.45% 1000 ML INJ 1,000 ML IV SCH ×2 (08:14→20:34)
[2016-12-31 08:15] LABS: MEAN CELL VOLUME 87.8 FL (80.0-100.0); MEAN CORPUSCULAR HEMOGLOBIN 31.9 PG (27.0-34.0); PLATELET COUNT 210 TH/MM3 (150-450); RED BLOOD COUNT 3.98 MIL/MM3 (4.50-5.90); RED CELL DISTRIBUTION WIDTH 12.6 % (11.6-17.2); WHITE BLOOD COUNT 7.8 TH/MM3 (4.0-11.0)
[2016-12-31 08:27] LABS: REVIEW FLAG FINAL
[2016-12-31 08:36] LABS: BICARBONATE 25.3 MEQ/L (21.0-32.0); MAGNESIUM 2.2 MG/DL (1.5-2.5); POTASSIUM 3.5 MEQ/L (3.5-5.1)
[2016-12-31] MEDS: THIAMINE INJ 100 MG in SODIUM CHLORIDE 0.9% INJ 100 ML IV SCH (09:00)
[2016-12-31] MEDS: SODIUM CHLORIDE 0.9% FLUSH 10 ML FLUSH IV FLUSH SCH ×2 (09:00→14:47)
[2016-12-31] MEDS: ARTIFICIAL TEARS OPTH SOLN 15 ML BTL EACH EYE SCH ×3 (09:00→18:00)
[2016-12-31] MEDS: FOLIC ACID 1 MG TAB PO SCH (09:07)
[2016-12-31] MEDS: MULTIVITAMIN TAB PO SCH (09:07)
[2016-12-31] MEDS: DOCUSATE SODIUM 50 MG/SENNA 8.6 MG TAB PO SCH ×2 (09:07→20:33)
[2016-12-31 09:19] LABS: CKMB 1.5 NG/ML (0.5-3.6)
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
[2016-12-31] MEDS: MIRTAZAPINE 15 MG TAB PO SCH (20:33)
[2016-12-31] MEDS: OLANZapine 10 MG TAB PO SCH (20:35)
[2016-12-31] MEDS: SODIUM CHLOR 0.9% 1000 ML INJ 1,000 ML IV SCH (23:45)
[2017-01-01] VITALS (8 sets, daily range): BP systolic 118–144; BP diastolic 58–66; PULSE 73–86; RESP 16–18; TEMP 97.5–98.3; O2SAT 92–98
[2017-01-01] MEDS: PIPERACIL-TAZO 4.5 GM PREMIX 100 ML IV SCH ×4 (01:15→21:46)
[2017-01-01] MEDS: CHLORHEXIDINE GLUCONATE 2 % 1 PACK (2 CLOTHS) TOP SCH (04:00)
[2017-01-01] MEDS: SODIUM CHLOR 0.9% 1000 ML INJ 1,000 ML IV SCH ×2 (07:45→23:45)
[2017-01-01] MEDS: FOLIC ACID 1 MG TAB PO SCH (08:18)
[2017-01-01] MEDS: DOCUSATE SODIUM 50 MG/SENNA 8.6 MG TAB PO SCH ×2 (08:18→21:45)
[2017-01-01] MEDS: MULTIVITAMIN TAB PO SCH (08:18)
[2017-01-01] MEDS: ARTIFICIAL TEARS OPTH SOLN 15 ML BTL EACH EYE SCH ×3 (09:00→18:00)
[2017-01-01] MEDS: SODIUM CHLORIDE 0.9% FLUSH 10 ML FLUSH IV FLUSH SCH ×2 (09:00→21:00)
[2017-01-01 09:26] LABS: BICARBONATE 24.9 MEQ/L (21.0-32.0); POTASSIUM 3.6 MEQ/L (3.5-5.1)
[2017-01-01] MEDS: THIAMINE INJ 100 MG in SODIUM CHLORIDE 0.9% INJ 100 ML IV SCH (09:28)
[2017-01-01 10:04] LABS: CKMB 0.9 NG/ML (0.5-3.6)
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
--- NOTE | 2017-01-01 14:43 | PD.PSY.CON ---
Provisional Diagnosis Admission Date Dec 28, 2016 at 03:54 [facility]. Adjustment disorder with depressed mood, history of major depressive disorder, recurrent, without psychotic features, alcohol use disorder, in early partial remission, [facility] II. Deferred [facility] III. Hyponatremia, after mental status [facility] IV. Poor family and social support [facility] V. 55 History of Present Illness Service Psychiatry Consult Requested By Reason for Consult Depressive symptoms Primary Care Physician Unknown HPI The patient is a 71-year-old man, domiciled alone in [place], single, retired, with psychiatric history of depression and anxiety, alcohol use disorder, previous psychiatric hospitalizations, he was hospitalized here at [facility] on November 2016 under the care of Dr. Melo, documentation reviewed , he has established outpatient psychiatric care and [facility], he is currently on olanzapine 10 mg, Remeron 30 mg, no previous suicidal attempts, who was brought to the hospital due to after mental status, hospitalized with a diagnosis of Acute delirium/ severe hyponatremia Initially his Sodium level [address] 12/27 revealed no acute intracranial findings. MRI brain 12/28 negative. EEG with mild to moderate encephalopathy. Consulted to psychiatry due to symptoms of depression. Patient seen today for psychiatric evaluation, patient is calm, cooperative, pleasant. Patient reports ongoing anxiety and depression due to his current medical situation and the length of his hospitalization. However, patient denies hopelessness, he denies anhedonia, he denies helplessness, he denies decreased self-esteem, he denies generalized pessimism problem with energy or appetite. He does report problems sleeping, increased anxiety, and sadness related with the uncertainty of his medical conditions. Patient says that before coming to the hospital he was doing better mood geronimo, responding positively to his psychotropic regimen. Patient denies suicidal and homicidal ideation, he denies visual and auditory hallucinations. Patient does not seem to be delirious at this moment, he is oriented 3, with good attention span, no fluctuation of consciousness, no gross cognitive impairment present. Patient reports compliant with his medications and follow-ups. Patient denies use of alcohol and drugs. Review of Systems Constitutional: DENIES: Diaphoretic episodes, Fatigue, Fever, Weight gain, Weight loss, Chills, Dizziness, Change in appetite, Night Sweats Eyes: DENIES: Blurred vision, Diplopia, Eye inflammation, Eye pain, Vision loss , Photosensitivity, Double Vision Ears, nose, mouth, throat: DENIES: Tinnitus, Hearing loss, Vertigo, Nasal discharge, Oral lesions, Throat pain, Hoarseness, Ear Pain, Running Nose, Epistaxis, Sinus Pain, Toothache, Odynophagia Respiratory: DENIES: Apneas, Cough, Snoring, Wheezing, Hemoptysis, Sputum production, Shortness of breath Gastrointestinal: DENIES: Abdominal pain, Black stools, Bloody stools, Constipation, Diarrhea, Nausea, Vomiting, Difficulty Swallowing, Anorexia Musculoskeletal: DENIES: Joint pain, Muscle aches, Stiffness, Joint Swelling, Back pain, Neck pain Integumentary: DENIES: Abnormal pigmentation, Nail changes, Pruritus, Rash Hematologic/lymphatic: DENIES: Bruising, Lymphadenopathy Immunologic/allergic: DENIES: Eczema, Urticaria Neurologic: DENIES: Abnormal gait, Headache, Localized weakness, Paresthesias, Seizures, Speech Problems, Tremor, Poor Balance Psychiatric: COMPLAINS OF: Depression, DENIES: Anxiety, Confusion, Mood changes, Hallucinations, Agitation, Suicidal Ideation, Homicidal Ideation, Delusions Past Family Social History Coded Allergies: No Known Allergies (Unverified , 11/11/16) Active Scripts Olanzapine 10 Mg Tab10 Mg PO HS 15 Days Ref 1 Prov:Mark Melo MD 12/09/16 Mirtazapine 15 Mg Tab30 Mg PO HS 15 Days Ref 1 Prov:Mark Melo MD 12/09/16 Discontinued Scripts Hydroxyzine HCl 50 Mg Tab50 Mg PO Q6H PRN (ANXIETY) #30 TAB Ref 1 Prov:Mark Melo MD 12/09/16 Fluoxetine 20 Mg [id number] Mg PO DAILY 15 Days Ref 1 Prov:Mark Melo MD 12/09/16 Docusate Sodium (Dok)100 Mg [id number] Mg PO BID 15 Days Ref 1 Discontinue use if stools become loose. Prov:Mark Melo MD 12/09/16 Current Medications Medications (Trade) Dose Ordered Sig/Shabana Route Start Time Stop Time Status Last Admin IV Flush 2 ml 2 ml UNSCH PRN IV FLUSH 12/28/16 00:00 (Thiamine Inj/NS Inj) 101 ml @ 101 mls/hr DAILY IV 12/28/16 09:00 01/01/17 09:28 (Folate) 1 mg DAILY PO 12/28/16 09:00 01/01/17 08:18 (Theragran) 1 tab DAILY PO 12/28/16 09:00 01/01/17 08:18 (NS Flush) 2 ml UNSCH PRN IV FLUSH 12/28/16 02:00 12/29/16 08:48 (NS Flush) 2 ml BID IV FLUSH 12/28/16 09:00 12/31/16 14:47 (Tylenol) 650 mg Q6H PRN PO 12/28/16 02:00 12/30/16 22:48 (Tears Naturale Opth Soln) 1 drop TID EACH EYE 12/28/16 09:00 01/01/17 13:00 (Zofran Inj) 4 mg Q6H PRN IV 12/28/16 02:00 Miscellaneous Information 1 Q361D XX 12/28/16 02:00 (Chlorhexidine 2% Cloth) 3 pack Taper DAILY@04 TOP 12/28/16 04:00 12/24/17 03:59 12/30/16 02:00 (Chlorhexidine 2% Cloth) 3 pack UNSCH PRN TOP 12/28/16 02:00 (Nemo-Colace) 1 tab BID PO 12/28/16 09:00 01/01/17 08:18 (Milk Of Magnesia Liq) 30 ml Q12H PRN PO 12/28/16 02:00 (Senokot) 17.2 mg Q12H PRN PO 12/28/16 02:00 (Dulcolax Supp) 10 mg DAILY PRN RECTAL 12/28/16 02:00 Lactulose 30 ml 30 ml DAILY PRN PO 12/28/16 02:00 (Zosyn 4.5 Gm Premix) 100 ml @ 200 mls/hr Q6H IV 12/28/16 02:00 01/01/17 13:39 (Remeron) 30 mg HS PO 12/30/16 21:00 12/31/16 20:33 Olanzapine 10 mg 10 mg HS PO 12/30/16 21:00 12/31/16 20:35 (NS 1000 ml Inj) 1,000 ml @ 125 mls/hr Q8H IV 12/31/16 23:45 01/01/17 07:45 Family History He denies family psychiatric history Social History Patient was born and raised in [place], he lives alone and poor [place], he is single, has 2 kids, retired, used to be an actor. Patient's Strengths (min. 2) Compliant with medications, outpatient care Physical Exam No psychomotor retardation or agitation, no tremors, no stiffness, no EPS, no withdrawal present Vital Signs Vital Signs Date Time Temp Pulse Resp B/P Pulse Ox O2 Delivery O2 Flow Rate FiO2 01/01/17 12:00 97.8 80 16 118/58 97 12/30/16 08:43 21 12/28/16 22:22 Nasal Cannula 2.00 I/O 12/31/16 12/31/16 01/01/17 08:00 16:00 00:00 Intake Total 360 ml Output Total 350 ml 1250 ml 700 ml Balance -350 ml -1250 ml -340 ml Lab Results Result Diagram: 01/01/17 0712 12/31/16 0712 Mental Status Examination Appearance man, age appearing, [facility], good hygiene, calm and cooperative Speech: Unremarkable Orientation: x3 Memory: Unremarkable Thought Process: Logical Thought Content: Unremarkable Language Fluent and spontaneous Fund of Knowledge Adequate for level of education Hallucination Type: None Suicidal Ideation: No Previous Suicide Attempts: No Homicidal Ideation: No Previous Homicide Attempts: No Insight: Good Judgment: WNL Affect: Good Mood: Appropriate Motor Activity: Normal gait Assessment & Plan Problem List: (1) Adjustment disorder with depressed mood Assessment & Plan: On psychiatric evaluation today patient reports mild to moderate symptoms of depression and anxiety mostly secondary to his underlying acute medical conditions and the length of his hospitalization. Patient denies anhedonia, denies hopelessness, denies helplessness, denies suicidal IDEATION. He denies visual and auditory hallucinations. No delusions paranoia, disorganized behavior or thoughts, are present during the moment of this evaluation. Patient is oriented 3, no delirium present. Extensive support, motivation and psychoeducation provided. Patient does not need psychiatric admission at this moment. I will increase the Remeron to 45 mg to help with the depression. Patient will continue his psychiatric care as an outpatient in [facility]. ICD Code: F43.21 Assessment & Plan Estimated LOS: Raul Eden MD Jan 01, 2017 14:42
[2017-01-01] MEDS ORDERED: MIRTAZAPINE 15 MG TAB PO SCH (21:00)
[2017-01-01] MEDS: OLANZapine 10 MG TAB PO SCH (21:00)
[2017-01-02] VITALS (7 sets, daily range): BP systolic 96–126; BP diastolic 59–70; PULSE 73–87; RESP 16–18; TEMP 97.9–98.2; O2SAT 92–98
[2017-01-02] MEDS: PIPERACIL-TAZO 4.5 GM PREMIX 100 ML IV SCH ×2 (02:00→08:37)
[2017-01-02] MEDS: CHLORHEXIDINE GLUCONATE 2 % 1 PACK (2 CLOTHS) TOP SCH (04:00)
[2017-01-02] MEDS: SODIUM CHLOR 0.9% 1000 ML INJ 1,000 ML IV SCH (07:45)
[2017-01-02] MEDS: FOLIC ACID 1 MG TAB PO SCH (08:39)
[2017-01-02] MEDS: MULTIVITAMIN TAB PO SCH (08:39)
[2017-01-02] MEDS: SODIUM CHLORIDE 0.9% FLUSH 10 ML FLUSH IV FLUSH SCH (08:40)
[2017-01-02] MEDS: ARTIFICIAL TEARS OPTH SOLN 15 ML BTL EACH EYE SCH ×2 (08:40→12:31)
[2017-01-02] MEDS: DOCUSATE SODIUM 50 MG/SENNA 8.6 MG TAB PO SCH (08:40)
[2017-01-02] MEDS: THIAMINE INJ 100 MG in SODIUM CHLORIDE 0.9% INJ 100 ML IV SCH (09:51)
[2017-01-02] MEDS ORDERED: METR-1 PO (13:04)
[2017-01-02] MEDS ORDERED: AMOX875T2 PO (13:04)
[2017-01-02] MEDS ORDERED: MIRTA15 PO (13:04)
[2017-01-02] MEDS ORDERED: SENN1TAB PO (13:04)
--- NOTE | 2017-01-02 13:04 | HHI.DCPOC ---
Discharge Care Plan Diagnosis: (1) Pneumonia (2) Hyponatremia (3) Adjustment disorder with depressed mood Goals to Promote Your Health * To prevent worsening of your condition and complications * To maintain your health at the optimal level Directions to Meet Your Goals Take your medications as prescribed Follow your dietary instruction Follow activity as directed Keep your appointments as scheduled Take your immunizations and boosters as scheduled If your symptoms worsen call your PCP, if no PCP go to Urgent Care Center or Emergency Room Smoking is Dangerous to Your Health. Avoid second hand smoke Call the 24-hour hour crisis hotline for domestic abuse at Brooke Watson MD Jan 02, 2017 13:04
[2017-01-02 13:31] LABS: BICARBONATE 23.5 MEQ/L (21.0-32.0); POTASSIUM 3.9 MEQ/L (3.5-5.1)
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
[2017-01-02] MEDS ORDERED: metroNIDAZOLE 500 MG TAB PO SCH (14:00)
[2017-01-02 14:04] LABS: CKMB 0.5 NG/ML (0.5-3.6)
[2017-01-02] MEDS ORDERED: AMOXICILLIN/CLAVULANATE K 875 MG TAB PO SCH (15:00)
--- NOTE | 2017-01-07 10:42 | PQ ---
Physician Query Response Document PATIENT: DIANA GONZALEZ : 1945 ADMIT DATE: 12/28/2016 3:54 AM DISCH DATE: 01/02/2017 4:45 PM RESPONDING PROVIDER #: [email or web address] QUERY TEXT: Sepsis Query Based on your medical judgement, can you further clarify the folowiin. Sepsis (SIRS due to an infection) 2. Sepsis with Organ Dysfunction 3. A localized Infection only 4. Another condition - please specify 5. Unable to determine - please explain. Depending on your selection above, please indicate one of the below if applicable: - Sepsis was present on Admission - Sepsis developed after admission The patient's Clinical Indicators include: 12/28/16 Admission Diagnosis toxic encephalopathy, sepsis, hyponatremia PER ED NARRATIVE COURSE - The patient has hyponatremia, sepsis, altered mental status. PER SOLVENT RECOVERER H Left rib fractures 2, 3, 4, 5, 8 with left scapula fracture CLINICAL INDICATORS: 12/28/16 WBC - 18.5 H T - 100.3 rectal HR - 96, 98 Query created by: Manuela Mauricio on 01/02/2017 9:28 AM RESPONSE TEXT: Sepsis with organ dysfunction -encephalopathy Electronically signed by: Nazario Posada MD 01/07/2017 10:38 AM
== END 2017-01-02 16:45 | disposition home or self-care (01) | DRG 871 ==
LOC: PHED 23:44 → PHEDA 12-28 03:54 → HIME 12-28 04:20 → N05B 12-30 17:39
PROVIDERS: ADMIT Family Medicine; ATTEND Family Medicine
PROC: 0RSWXZZ Reposition Right Finger Phalangeal Joint, External Approach (ICD-10-PCS; principal; 2016-12-29)
DX: A41.9 Sepsis, unspecified organism (principal); J69.0 Pneumonitis due to inhalation of food and vomit; G92 Toxic encephalopathy; E87.1 Hypo-osmolality and hyponatremia; M62.82 Rhabdomyolysis; E83.39 Other disorders of phosphorus metabolism; R65.20 Severe sepsis without septic shock; D64.9 Anemia, unspecified; I10 Essential (primary) hypertension; G40.909 Epilepsy, unspecified, not intractable, without status epilepticus; S63.256A Unspecified dislocation of right little finger, initial encounter; S01.01XA Laceration without foreign body of scalp, initial encounter; W19.XXXA Unspecified fall, initial encounter; K40.90 Unilateral inguinal hernia, without obstruction or gangrene, not specified as recurrent; K42.9 Umbilical hernia without obstruction or gangrene; M50.90 Cervical disc disorder, unspecified, unspecified cervical region; F32.9 Major depressive disorder, single episode, unspecified; F17.210 Nicotine dependence, cigarettes, uncomplicated; I70.90 Unspecified atherosclerosis; E87.6 Hypokalemia; S22.42XD Multiple fractures of ribs, left side, subsequent encounter for fracture with routine healing; S42.102D Fracture of unspecified part of scapula, left shoulder, subsequent encounter for fracture with routine healing; Z96.642 Presence of left artificial hip joint
CPT/HCPCS: 36600; 70450; 70551; 71250; 72125; 73130; 73140; 74176; 76937; 80048; 80053; 80307; 81001; 82140; 82533; 82550; 82552; 82805; 83605; 83735; 83930; 83935; 84100; 84132; 84295; 84300; 84443; 84478; 84484; 84550; 85007; 85025; 85027; 85610; 85652; 85730; 86140; 86592; 87040; 87641; 93005; 93306; 93880; 95819; 96361; 96365; 96367; 99285; J2060; J2543; J3370; J3411; J3480; J7030; J7040; J7050; P9612